=== PATIENT | female | born 1965 | race Caucasian/White ===

== ENCOUNTER 2019-09-27 12:43 | Outpatient (CLI) | payer BC, SELFPAY ==
--- NOTE | ~2019-09-27 | XR_ITS ---
EXAMINATION: XR chest 2V DATE: 09/27/2019 13:05 INDICATION: Cough. Shortness of breath. Asthma. TECHNIQUE: Frontal and lateral views of the chest were obtained. COMPARISON: None. FINDINGS: There is a 1.5 cm nodule at the junction of right mid and upper lung zones. No pleural effu amina or pneumothorax. The heart size is normal. IMPRESSION: 1. Right lung nodule suspicious for primary bronchogenic carcinoma. Noncontrast chest CT is recommend ed. Reviewed, dictated and finalized at location A. P KILLER IMPRESSION: 1. Right lung nodule suspicious for primary bronchogenic carcinoma. Noncontrast chest CT is recommended.
[2019-09-27 13:01] LABS: Base Excess ABG 2.6 mmol/L (0-2); Basophils Absolute Auto 0.03 K/mm3 (0.00-0.10); Basophils Percent Auto 0.4 % (0.0-1.0); Eosinophils Absolute Auto 0.33 K/mm3 (0.02-0.50); Eosinophils Percent Auto 4.6 % (1.0-6.0); HCO3 ABG 26.6 mmol/L (23-29); Hematocrit 44.5 % (35.0-49.0); Hemoglobin 15.2 g/dL (12.0-15.0); Immature Granulocyte Absolute 0.04 K/mm3 (0.00-0.00); Immature Granulocyte Percent A 0.6 % (0.0-0.0); Lymphocytes Absolute Auto 0.88 K/mm3 (1.10-4.50); Lymphocytes Percent Auto 12.4 % (18.0-42.0); Mean Corpuscular HGB Conc 34.2 g/dL (32.0-36.0); Mean Corpuscular Hemoglobin 33.6 pg (27.0-31.0); Mean Corpuscular Volume 98.2 fL (78.0-102.0); Mean Platelet Volume 8.4 fl (9.2-11.8); Monocytes Absolute Auto 0.79 K/mm3 (0.10-0.90); Monocytes Percent Auto 11.1 % (2.0-11.0); Neutrophils Percent Auto 70.9 % (50.0-70.0); Oxygen Content ABG 20.7 %vol (16.0-22.0); Oxygen Saturation ABG 94.3 % (95-97); Oxyhemoglobin 93.3 % (94-100); PCO2 ABG 38.9 mmHg (35-45); PO2 ABG 67.6 mmHg (80-90); Platelet Count Result 198 K/mm3 (150-420); Red Blood Count 4.53 M/mm3 (4.20-5.40); Red Cell Distribution Width 12.4 % (11.6-14.4); Total Hemoglobin 15.8 g/dL; White Blood Count 7.1 K/mm3 (4.8-10.8); pH ABG 7.45 (7.35-7.45)
[2019-09-27 13:02] LABS: Device ROOM AIR; Modified Allen's Test Pass; Site Drawn LEFT RADIAL
[2019-09-27 14:00] LABS: Alanine Aminotransferase 39 U/L (14-59); Albumin Level 3.4 g/dL (3.4-5.0); Alkaline Phosphatase 68 U/L (46-116); Anion Gap 17.1 mmol/L (7-16); Aspartate Amino Transferase 32 U/L (15-37); Bilirubin,Total 0.5 mg/dL (0.00-1.00); Blood Urea Nitrogen 18 mg/dL (7-18); Calcium 8.7 mg/dL (8.5-10.1); Carbon Dioxide 27 mmol/L (21-32); Chloride 101 mmol/L (98-108); Estimated Glomerular Filt Rate 53; Glucose 88 mg/dL (70-99); Osmolality Calculated 292 mOsm/kg (285-295); Potassium 4.1 mmol/L (3.5-5.1); Sodium 141 mmol/L (136-145); Total Protein 6.8 g/dL (6.4-8.2)
== END 2019-09-27 12:44 | disposition home or self-care (01) ==
LOC: CHSLAB 12:48
PROVIDERS: PCP Internal Medicine; Visit Provider Internal Medicine
DX: R05 Cough (principal); R06.02 Shortness of breath; J45.909 Unspecified asthma, uncomplicated
CPT/HCPCS: 36415; 36600; 71046; 80053; 82805; 85025

== ENCOUNTER 2020-03-09 08:35 | Outpatient (CLI) | payer BC, SELFPAY ==
--- NOTE | ~2020-03-09 | MM_ITS ---
EXAMINATION: MM screening maryam BI w mat HISTORY: Screening TECHNIQUE: Craniocaudal and mediolateral oblique 3-D tomosynthesis images were obtained and synthetic 2-D images were generated. CAD analysis was submitted and interpreted. COMPARISON: No prior mammogram is available for comparison at this institution. BREAST PARENCHYMAL COMPOSITION: There are scattered areas of fibroglandular density. FINDINGS: There is no evidence of suspicious mass, calcification, or architectural distortion to sugg est malignancy in either breast. There has been no suspicious interval change. IMPRESSION: 1. No mammographic evidence of malignancy. 2. Recommend routine screening mammography in one year. BI-RADS Category 1: Negative Reviewed, dictated and finalized at location A.
== END 2020-03-09 08:36 | disposition home or self-care (01) ==
LOC: CHSIMG 08:38
PROVIDERS: PCP Internal Medicine; Visit Provider Internal Medicine
DX: Z12.31 Encounter for screening mammogram for malignant neoplasm of breast (principal)
CPT/HCPCS: 77063; 77067

== ENCOUNTER 2020-05-21 11:32 | Outpatient (CLI) | payer BC, SELFPAY ==
[2020-05-22 13:07] LABS: SARS-CoV-2 RNA PCR Negative
== END 2020-05-21 11:33 | disposition home or self-care (01) ==
LOC: CHSLAB 11:39
PROVIDERS: PCP Internal Medicine; Visit Provider Internal Medicine
DX: Z20.828 Contact with and (suspected) exposure to other viral communicable diseases (principal)
CPT/HCPCS: 87635; C9803; U0003

== ENCOUNTER 2021-07-12 10:11 | Outpatient (CLI) | payer BC, SELFPAY ==
[2021-07-12 11:39] LABS: Influenza A QL RT-PCR Negative (Negative); Influenza B QL RT-PCR Negative (Negative); SARS-CoV-2 RNA PCR Negative (Negative)
== END 2021-07-12 10:12 | disposition home or self-care (01) ==
LOC: CHSLAB 10:14
PROVIDERS: PCP Internal Medicine; Visit Provider Nurse Practitioner Family
DX: Z20.822 Contact with and (suspected) exposure to COVID-19 (principal); J06.9 Acute upper respiratory infection, unspecified
CPT/HCPCS: 87502; C9803; U0003; U0005

== ENCOUNTER 2021-09-22 12:12 | Outpatient (CLI) | payer BC, SELFPAY ==
[2021-09-22 13:34] LABS: Influenza A QL RT-PCR Negative (Negative); Influenza B QL RT-PCR Negative (Negative); SARS-CoV-2 RNA PCR Negative (Negative)
== END 2021-09-22 12:13 | disposition home or self-care (01) ==
LOC: CHSLAB 12:16
PROVIDERS: PCP Internal Medicine; Visit Provider Internal Medicine
DX: J06.9 Acute upper respiratory infection, unspecified (principal); Z20.822 Contact with and (suspected) exposure to COVID-19
CPT/HCPCS: 87502; C9803; U0003; U0005

== ENCOUNTER 2022-04-01 10:47 | Outpatient (CLI) | payer OTHER, SELFPAY ==
[2022-04-01 11:35] LABS: SARS-CoV-2 RNA PCR Negative (Negative)
== END 2022-04-01 10:48 | disposition home or self-care (01) ==
LOC: CHSLAB 10:49
PROVIDERS: PCP Internal Medicine; Visit Provider Internal Medicine
DX: J06.9 Acute upper respiratory infection, unspecified (principal); Z20.822 Contact with and (suspected) exposure to COVID-19
CPT/HCPCS: C9803; U0003; U0005

== ENCOUNTER 2022-05-05 10:43 | Outpatient (CLI) | payer OTHER, SELFPAY ==
--- NOTE | ~2022-05-05 | XR_ITS ---
XR chest 2V 05/05/2022 11:11 Indication: Wheezing. Procedure: 2 view chest Comparison: 09/27/2019 Findings: Heart size normal. Stable calcified granuloma right upper thorax. No focal air space diseas e, pulmonary edema, pleural effusion or suspected pneumothorax. No acute osseous abnormality. There i s accentuated kyphosis at the thoracolumbar junction. Moderate thoracic spondylosis. Impression: 1: No acute cardiopulmonary disease. Reviewed, dictated and finalized at location A. Impression: 1: No acute cardiopulmonary disease.
--- NOTE | ~2022-05-05 | XR_ITS ---
EXAMINATION: XR_CERV2-3V_CR DATE: 05/05/2022 11:11 INDICATION: Right hand and foot numbness. Neck and back pain. TECHNIQUE: 3 views of cervical spine were obtained. COMPARISON: None. FINDINGS: There is 2 mm retrolisthesis of C3 5 on C6. Vertebral body heights are normal. There is mod erately decreased disc height at C5-C6. At C5-C6, there is severe right and moderate left uncovertebr al joint osteoarthritis. There is multilevel mild facet joint osteoarthritis. There is mild central c anal stenosis at C5-C6. No prevertebral soft tissue swelling. IMPRESSION: 1. Moderate cervical spondylosis. Reviewed, dictated and finalized at location A.
--- NOTE | ~2022-05-05 | XR_ITS ---
EXAMINATION: XR lumbar spine 2-3V DATE: 05/05/2022 11:11 INDICATION: Back pain. TECHNIQUE: 3 views of lumbar spine were obtained. COMPARISON: None. FINDINGS: There is 3 degrees levocurvature of lumbar spine. There is 3 mm retrolisthesis of L2 on L3. Vertebral body heights are normal. There is mildly decreased disc height at L2-L3 and moderately dec reased disc height at L5-S1. There is multilevel facet joint osteoarthritis, severe bilaterally at L4 -L5 and L5-S1. IMPRESSION: 1. Moderate lumbar spondylosis. Reviewed, dictated and finalized at location A.
== END 2022-05-05 10:44 | disposition home or self-care (01) ==
LOC: CHSIMG 10:46
PROVIDERS: PCP Internal Medicine; Visit Provider Internal Medicine
DX: R20.0 Anesthesia of skin (principal); H53.8 Other visual disturbances; M54.2 Cervicalgia; M54.9 Dorsalgia, unspecified
CPT/HCPCS: 71046; 72040; 72100

== ENCOUNTER 2022-11-02 10:22 | Outpatient (RCR) | payer OTHER, SELFPAY ==
--- NOTE | 2022-11-02 12:01 | PTOPEVAL1 ---
Assessment and note entered by Valeria Bryan DPT Evaluation Information Assessment Status Evaluation Diagnosis weakness, decreased balance Onset 05/04/22 Subjective Information Ginger reports that in April she felt like she had tunnel vision but reports that this progressed to R LE weakness and numbness that eventually went to L LE as well. She also reports weakness in the R hand. 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 She reports she was wheelchair bound following hospitalization and was sent to [place] for rehab . She has been recieving PT in [place] but they were no longer taking her insurance. She is walking with a platform walker but would like to transition to [facility]. 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 Reported Pain Level Pain Score 0: Self Report Assessment PT Clinical Summary Patient is a 56 year old female who presents to PT with EGPA. She demonstrates impaired balance, decreased B ankle strength and impaired gait limiting her ability to ambulate, complete house hold tasks, and participate in community activity. She would benefit from skilled PT to address impairments and reach her highest level of function Plan of Care PT Services Indicated Yes Treatment Frequency and 2x weekly for 8 visits Duration These treatments will address the objective and functional deficits as defined above. The patient will be advanced safely and appropriately in order for the patient to progress towards his/her prior level of function. Additional exercises will be introduced and as well as a comprehensive home exercise program upon discharge, if needed, ?to ensure carryover of functional gains achieved in the clinic. This treatment plan has been reviewed and agreement upon by the patient.
--- NOTE | 2022-11-15 19:57 | BUOTOPEVAL ---
Assessment and note entered by Tri Jacobs, OT Evaluation Information Assessment Status Evaluation Diagnosis generalized weakness Onset 05/04/22 Subjective Information Patient reports that she was diagnosed with EGPA with symptoms starting in April 2022. She received acute rehab in June 2022 and has not had any OT since then. Patient reports that she has significant weakness in bilateral hands however it is worse in her R hand. Her strong fingers are the L thumb, index and middle fingers although those are weak as well. She states that weakness has been about the same since approximately June 2022. Altered sensation, tingling and numbness, is noted throughout bilateral hands and LE's. Patient requires assist to get in the shower but is then able to bathe herself. She is using a tub seat. Patient has a difficult time lifting things which impacts her ability to cook and clean however she continues to try. Patient struggles with writing and is using built up utensils for feeding. Patient is currently getting herself dressed and performs grooming. 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 Reported Pain Level Pain Score 0: Self Report Pain Score 0: Self Report Pain Score 0: Self Report Pain Score 0: Self Report Assessment OT Clinical Summary Patient is a 56 year old female who presents with generalized weakness and a diagnosis of EGPA with polyneuritis. 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 She currently requires assist for bathing, most IADLs, and fine motor skills. Patient exhibits significant deficits in sensation throughout bilateral hands, decreased strength in bilateral hands, and decreased ROM in the R hand that are directly impacting her independence and function. Skilled OT services are recommended in order to faciliate these skills as well as provide education on safety with sensation deficits and provide appropriate accomodations/modifications. Plan of Care Interventions Therapeutic Exercise,Manual Therapy,Neuro Re-
--- NOTE | 2022-12-05 10:07 | PTOPREEVAL ---
Assessment and note entered by Valeria Bryan DPT Evaluation Information Assessment Status Re-evaluation Diagnosis weakness, decreased balance Onset 05/04/22 Subjective Information Patient reports that L foot continues to feel weak and she feels like it will roll'. She reports she is using the cane around house and short distances but is using the walker for longer distances. She reports she has noticed for UE strength and has improved cane use. She reports yesterday she noticed that the R LE started to swell with her foot having some pain. She reports she was very busy yesterday. Reported Pain Level Pain Score 5: Self Report Assessment PT Clinical Summary Patient has attended 8 visits of skilled PT from -12/05/22. She has demonstrated improved strength and balance but still presents as a fall risk. She is now ambulating with a cane for short distances and a walker for prolonged distances. She would benefit from continued skilled PT to address remaining impairments and return to her highest level of function. Plan of Care Interventions Gait Training,Hot Pack/Cold Pack,Manual Therapy, Neuro Re-education,Patient/Caregiver Educati, Therapeutic Activities,Therapeutic Exercise PT Services Indicated Yes Treatment Frequency and continue 2x weekly for 8 visits Duration These treatments will address the objective and functional deficits as defined above. The patient will be advanced safely and appropriately in order for the patient to progress towards his/her prior level of function. Additional exercises will be introduced and as well as a comprehensive home exercise program upon discharge, if needed, ?to ensure carryover of functional gains achieved in the clinic. This treatment plan has been reviewed and agreement upon by the patient.
--- NOTE | 2023-01-04 10:19 | BUOTOPEVAL ---
Assessment and note entered by Blanca Oliveira, OT Evaluation Information Assessment Status Progress Diagnosis generalized weakness Onset 05/04/22 Subjective Information Patient reports that she was diagnosed with EGPA with symptoms starting in April 2022. She received acute rehab in June 2022 and has not had any OT since then. Patient reports that she has significant weakness in bilateral hands however it is worse in her R hand. Her strong fingers are the L thumb, index and middle fingers although those are weak as well. She states that weakness has been about the same since approximately June 2022. Altered sensation, tingling and numbness, is noted throughout bilateral hands and LE's. Patient requires assist to get in the shower but is then able to bathe herself. She is using a tub seat. Patient has a difficult time lifting things which impacts her ability to cook and clean however she continues to try. Patient struggles with writing and is using built up utensils for feeding. Patient is currently getting herself dressed and performs grooming. Patient's primary goal for OT is to improve her grasp/runner on in the R hand. Reported Pain Level Pain Score 0: Self Report Pain Score 0: Self Report Pain Score 0: Self Report Pain Score 0: Self Report Pain Score 0: Self Report Pain Score 0: Self Report Pain Score 0: Self Report Pain Score 0: Self Report Pain Score 0: Self Report Pain Score 0: Self Report Pain Score 0: Self Report Pain Score 5: Self Report Pain Score 0: Self Report Pain Score 0: Self Report Pain Score 0: Self Report Pain Score 0: Self Report Pain Score 0: Self Report Pain Score 0: Self Report Pain Score 0: Self Report Pain Score 0: Self Report Pain Score 0: Self Report
--- NOTE | 2023-01-17 13:00 | PTOPREEVAL ---
Assessment and note entered by Valeria Bryan DPT Evaluation Information Assessment Status Re-evaluation Diagnosis weakness, decreased balance Onset 05/04/22 Subjective Information Patient reports that since blood clot she is back to where she was prior. Patient reports difficuty with walking for long periods of time. She would like to continue to work on stamina and prolong activity Reported Pain Level Pain Score 1: Self Report Assessment PT Clinical Summary Patient has been seen for 8 visits since last re- assesssment. Patient continues to make good progress towards goals with improved strength, balance and ambulation. She continues to demonstrate decreaed strength at B ankles and is at risk for fals indicated by functional testing. She will benefit from continued skilled PT to decrease fall risk within in the home and improve independence. Plan of Care Interventions Gait Training,Hot Pack/Cold Pack,Manual Therapy, Neuro Re-education,Patient/Caregiver Educati, Therapeutic Activities,Therapeutic Exercise PT Services Indicated Yes Treatment Frequency and 1x weekly for 4 visits Duration These treatments will address the objective and functional deficits as defined above. The patient will be advanced safely and appropriately in order for the patient to progress towards his/her prior level of function. Additional exercises will be introduced and as well as a comprehensive home exercise program upon discharge, if needed, ?to ensure carryover of functional gains achieved in the clinic. This treatment plan has been reviewed and agreement upon by the patient.
--- NOTE | 2023-02-14 10:46 | PTOPDC ---
Assessment and note entered by Valeria Bryan DPT Evaluation Information Assessment Status Re-evaluation Diagnosis weakness, decreased balance Onset 05/04/22 Subjective Information Patient reports that she is able to stand and walk for longer periods of time. She also reports she is able to walk on her hardwood with no AD. Reported Pain Level Pain Score 1: Self Report Assessment PT Clinical Summary Patient was seen for 20 visits of skilled PT with good improvement towards all goals. Patient has improved 6 min walk test to 675' with STC, 5xSTS to 12 seconds and improved Tinetti balance scoring indicating lower fal risk. Patient is independent with HEP and is appropriate for DC at this time. Plan of Care PT Services Indicated No
--- NOTE | 2023-07-27 13:39 | PCOTNOTE ---
The patient discharged due to >30 days since last treatment.
== END 2023-01-11 14:16 | disposition home or self-care (01) ==
LOC: CHSPT 10:22
PROVIDERS: PCP Internal Medicine; Visit Provider Internal Medicine
DX: M30.1 Polyarteritis with lung involvement [Churg-Strauss] (principal); G62.9 Polyneuropathy, unspecified; R53.1 Weakness
CPT/HCPCS: 97110; 97112; 97116; 97140; 97150; 97161; 97165; 97530; 97750

== ENCOUNTER 2022-12-07 10:10 | Emergency (ER) | payer OTHER, SELFPAY ==
--- NOTE | ~2022-12-07 | US_ITS ---
EXAMINATION: US venous doppler LE DATE: 12/07/2022 11:46 INDICATION: Right lower limb swelling TECHNIQUE: Grayscale ultrasound images without and with compression and Doppler ultrasound images of the right lower extremity veins were obtained. COMPARISON: None. FINDINGS: Noncompressible deep venous thrombosis seen in the visualized portions of the right common femoral ve in, profunda (deep) femoral vein, femoral vein, popliteal vein and greater saphenous vein outflow. Th is appears largely occlusive with small tract of residual blood flow evident on color Doppler at the right gastrocnemius vein extending into the right common femoral vein. The visualized portions of the right gastrocnemius vein and posterior tibial vein are patent and compressible. The right peroneal v eins are now clearly visualized. IMPRESSION: 1. Extensive deep venous thrombosis extending from the right common femoral vein through at least th e right popliteal vein which appears largely occlusive. Dr. Miguel discussed these findings with Dr. Gamboa at 11:51 AM. Reviewed, dictated and finalized at location A. IMPRESSION: 1. Extensive deep venous thrombosis extending from the right common femoral ve in through at least the right popliteal vein which appears largely occlusive. Dr. Miguel discussed these findings with Dr. Gamboa at 11:51 AM.
[2022-12-07 10:10] VITALS: BP 139/83; PULSE 96; RESP 18; TEMP 36.6; O2SAT 93
--- NOTE | 2022-12-07 10:23 | ED.LOWEXIN ---
HPI - Extremity Injury (Lower) General Chief Complaint: Extremity Injury, Lower Stated Complaint: Right Leg Swelling Time Seen by Provider: 12/07/22 10:17 Source: patient Limitations: no limitations History of Present Illness HPI Narrative: 56-year-old female with a history of anxiety/depression,diabetes mellitus, [place] with asthma, mononeuritis multiplex, left optic neuritis with exacerbation in June of 2022 with foot drop, loss of ambulation which was treated with steroids and rituximab. subsequently the patient is on prednisone 80 mg daily. The patient presents to the ER with -- right leg swelling for the past 3 days. No shortness of breath. The patient has right footdrop and uses the right foot brace. Onset (ago): day(s) ( Started 3 days ago.) Relieving factors: nothing Exacerbating factors: nothing Other symptoms: none Related Data Home Medications Medication Instructions Recorded Confirmed Admelog U-100 Insulin lispro See Rx Instructions .Route .COMPLEX 07/14/22 12/07/22 Adults Multivitamin 1 mg PO DAILY 07/14/22 12/07/22 albuterol sulfate 90 mcg/actuation 2 puff inhalation Q4-6H PRN 07/14/22 12/07/22 aerosol inhaler Shortness Of Breath Or Wheezing cetirizine 10 mg tablet 10 mg PO DAILY 07/14/22 12/07/22 fluticasone furoate-vilanterol 1 puff inhalation DAILY 07/14/22 12/07/22 fluticasone propionate 2 spray inhalation DAILY 07/14/22 12/07/22 gabapentin 600 mg tablet 600 mg PO TID 07/14/22 12/07/22 pantoprazole 40 mg tablet,delayed 40 mg PO DAILY 07/14/22 12/07/22 release (Protonix) fluticasone 500 mcg-salmeterol 50 1 inh inhalation BID 12/07/22 12/07/22 mcg/dose blistr powdr for inhalation (Advair Diskus) fluticasone furoate 200 1 inh inhalation DAILY 12/07/22 12/07/22 mcg-vilanterol 25 mcg/dose inhalation powder (Breo Ellipta) sulfamethoxazole 400 1 tablet PO DAILY 12/07/22 12/07/22 mg-trimethoprim 80 mg tablet zolpidem 10 mg tablet 5 mg PO HS 12/07/22 12/07/22 Allergies Allergy/AdvReac Type Severity Reaction Status Date / Time No Known Allergies Allergy Verified 12/07/22 10:20 Review of Systems Review of Systems: All systems reviewed & are unremarkable except as noted in HPI and below Constitutional: Constitutional: Reports as per HPI and Reports no additional constitutional complaints Eyes: Eyes: Reports as per HPI and Reports no additional eye complaints ENT: Reports system reviewed and no additional complaints, except as documented and Reports as per HPI Cardiovascular: Cardiovascular: Reports as per HPI and Reports no additional cardiovascular complaints Respiratory: Respiratory: Reports as per HPI and Reports no additional respiratory complaints Gastrointestinal: Gastrointestinal: Reports as per HPI and Reports no additional gastrointestinal complaints Genitourinary: Genitourinary: Reports no additional female genitourinary complaints and Reports as per HPI Musculoskeletal: Musculoskeletal: Reports no additional musculoskeletal complaints and Reports as per HPI Integumentary/Breasts: Skin/Breast: Reports system reviewed and no additional complaints, except as docu and Reports as per HPI Neurologic: Comments: Right foot drop decreased sensation of distal extremities Psychiatric: Psychiatric: Reports anxiety and Reports depression Endocrine: Endocrine: Reports no additional endocrine complaints and Reports as per HPI Hematologic/Lymphatic: Hematologic/Lymphatic: Reports no additional hematologic/lymphatic complaints and Reports as per HPI Allergic/Immunologic: Allergic/Immunologic: Reports no additional allergic/immunologic complaints and Reports as per HPI [facility] Social History Social History Smoking status: Never smoker Exam Const: General: no acute distress Orientation/consciousness: patient oriented x3 Limitations: no limitations HENMT: Head: normal to inspection Ears: external ea
[2022-12-07 10:26] VITALS: BP 139/83; PULSE 96; RESP 18; TEMP 36.6; O2SAT 93
[2022-12-07 10:59] LABS: Basophils Absolute Auto 0.07 K/mm3 (0.00-0.10); Basophils Percent Auto 0.5 % (0.0-1.0); Eosinophils Absolute Auto 0.01 K/mm3 (0.02-0.50); Eosinophils Percent Auto 0.1 % (1.0-6.0); Hematocrit 44.4 % (35.0-49.0); Hemoglobin 14.6 g/dL (12.0-15.0); Immature Granulocyte Absolute 0.49 K/mm3 (0.00-0.00); Immature Granulocyte Percent A 3.3 % (0.0-0.0); Lymphocytes Absolute Auto 0.97 K/mm3 (1.10-4.50); Lymphocytes Percent Auto 6.5 % (18.0-42.0); Mean Corpuscular HGB Conc 32.9 g/dL (32.0-36.0); Mean Corpuscular Hemoglobin 34.5 pg (27.0-31.0); Mean Platelet Volume 8.8 fl (9.2-11.8); Monocytes Absolute Auto 0.41 K/mm3 (0.10-0.90); Monocytes Percent Auto 2.8 % (2.0-11.0); Neutrophils Absolute Auto 12.9 K/mm3 (1.7-7.2); Neutrophils Percent Auto 86.8 % (50.0-70.0); Nucleated Red Blood Cells Absolute Auto 0.03 K/mm3 (0.00-0.00); Nucleated Red Blood Cells Perc 0.2 % (0-0.0); Platelet Count Result 241 K/mm3 (150-420); Red Blood Count 4.23 M/mm3 (4.20-5.40); Red Cell Distribution Width 14.5 % (11.6-14.4); White Blood Count 14.9 K/mm3 (4.8-10.8)
[2022-12-07 11:08] LABS: Anion Gap 13 mmol/L (8-16); Blood Urea Nitrogen 18 mg/dL (7-18); Calcium 9.5 mg/dL (8.5-10.1); Carbon Dioxide 27 mmol/L (21-32); Chloride 103 mmol/L (98-108); Estimated CRCL calculation 42 ml/min; Estimated Glomerular Filt Rate 40; Glucose 154 mg/dL (70-99); Osmolality Calculated 300 mOsm/kg (285-295); Sodium 143 mmol/L (136-145)
--- NOTE | 2022-12-07 11:15 | PC.NURSE ---
Cleaned laceration on left leg with wound cleanser and dressed with a band-aid
[2022-12-07 11:21] LABS: D Dimer 5.15 mg/L (0.19-0.50)
--- NOTE | 2022-12-07 11:29 | PC.NURSE ---
PT TO ULTRASOUND AT THIS TIME.
[2022-12-07 12:00] VITALS: BP 140/91; PULSE 99; RESP 16; O2SAT 94
[2022-12-07 17:01] LABS: Alanine Aminotransferase 40 U/L (14-59); Albumin Level 3.7 g/dL (3.4-5.0); Alkaline Phosphatase 74 U/L (46-116); Aspartate Amino Transferase 18 U/L (15-37); Bilirubin Direct 0.1 mg/dL (0-0.2); Bilirubin,Total 0.3 mg/dL (0.00-1.00); Total Protein 6.8 g/dL (6.4-8.2)
== END 2022-12-07 12:25 | disposition home or self-care (01) ==
PROVIDERS: Emergency Provider Internal Medicine Critical Care Medicine; PCP Internal Medicine
DX: I82.411 Acute embolism and thrombosis of right femoral vein (principal); N28.9 Disorder of kidney and ureter, unspecified; E11.9 Type 2 diabetes mellitus without complications
CPT/HCPCS: 36415; 80048; 80076; 85025; 85380; 93971; 99284

== ENCOUNTER 2023-01-13 08:11 | Outpatient (CLI) | payer OTHER, SELFPAY ==
[2023-01-13 09:02] LABS: Hemoglobin A1C 5.4 % (<5.7)
[2023-01-13 10:09] LABS: Alanine Aminotransferase 38 U/L (14-59); Albumin Level 3.8 g/dL (3.4-5.0); Alkaline Phosphatase 63 U/L (46-116); Anion Gap 10 mmol/L (8-16); Aspartate Amino Transferase 15 U/L (15-37); Bilirubin,Total 0.3 mg/dL (0.00-1.00); Blood Urea Nitrogen 21 mg/dL (7-18); Calcium 9.1 mg/dL (8.5-10.1); Carbon Dioxide 27 mmol/L (21-32); Chloride 107 mmol/L (98-108); Cholesterol 286 mg/dL (0-200); Estimated Glomerular Filt Rate 40; Glucose 77 mg/dL (70-99); HDL Direct 70 mg/dL (40-60); LDL Cholesterol Calculated 169 mg/dL (<130); Osmolality Calculated 300 mOsm/kg (285-295); Potassium 3.9 mmol/L (3.5-5.1); Sodium 144 mmol/L (136-145); Total Protein 6.3 g/dL (6.4-8.2); Triglycerides 236 mg/dL (0-150)
== END 2023-01-13 08:12 | disposition home or self-care (01) ==
LOC: CHSLAB 08:16
PROVIDERS: PCP Internal Medicine
DX: R73.01 Impaired fasting glucose (principal); E78.5 Hyperlipidemia, unspecified
CPT/HCPCS: 36415; 80053; 80061; 83036

== ENCOUNTER 2023-03-08 08:42 | Outpatient (CLI) | payer OTHER, SELFPAY ==
--- NOTE | ~2023-03-08 | US_ITS ---
EXAMINATION: US venous doppler LE RT DATE: 03/08/2023 09:19 INDICATION: Follow-up of recent acute deep venous thrombosis TECHNIQUE: Grayscale ultrasound images without and with compression and Doppler ultrasound images of the right lower extremity veins were obtained. COMPARISON: 12/07/2022 FINDINGS: There is a small amount of residual nonocclusive peripheral linear thrombus in the right common femor al vein and at the distal right femoral vein . Prior thrombus as resolved in the visualized portions of right profunda (deep) femoral vein, proximal to mid femoral vein, and popliteal vein. The right pe roneal trunk, posterior tibial veins, peroneal veins, gastrocnemius vein and greater saphenous vein o utflow remain patent. Incidentally noted is approximately 2.2 cm reflux of the right popliteal vein. IMPRESSION: 1. Significant improvement in prior deep venous thrombosis with residual small amount of nonocclusiv e thrombus in the right common femoral and distal right femoral veins. Reviewed, dictated and finalized at location B. IMPRESSION: 1. Significant improvement in prior deep venous thrombosis with residual small amount of nonocclusive thrombus in the right common femoral and distal right f emoral veins.
== END 2023-03-08 08:43 | disposition home or self-care (01) ==
LOC: CHSIMG 08:44
PROVIDERS: PCP Internal Medicine; Visit Provider Internal Medicine Hematology & Oncology
DX: I82.411 Acute embolism and thrombosis of right femoral vein (principal)
CPT/HCPCS: 93971

== ENCOUNTER 2023-03-24 08:05 | Outpatient (CLI) | payer OTHER, SELFPAY ==
--- NOTE | ~2023-03-24 | MM_ITS ---
EXAMINATION: MM screening maryam BI w mat HISTORY: Screening mammogram TECHNIQUE: Craniocaudal and mediolateral oblique 3-D tomosynthesis images were obtained and synthetic 2-D images were generated. CAD analysis was submitted and interpreted. COMPARISON: 03/09/2020 BREAST PARENCHYMAL COMPOSITION: There are scattered areas of fibroglandular density. FINDINGS: No suspicious mass, calcification, or architectural distortion are identified in either twyla ast to suggest malignancy. There has been no suspicious interval change. IMPRESSION: 1. No mammographic evidence of malignancy. 2. Recommend routine screening mammography in one year. BI-RADS Category 1: Negative Reviewed, dictated and finalized at location A.
== END 2023-03-24 08:06 | disposition home or self-care (01) ==
LOC: CHSIMG 08:07
PROVIDERS: PCP Internal Medicine; Visit Provider Internal Medicine
DX: Z12.31 Encounter for screening mammogram for malignant neoplasm of breast (principal)
CPT/HCPCS: 77063; 77067

== ENCOUNTER 2023-05-09 13:41 | Outpatient (CLI) | payer OTHER, SELFPAY ==
--- NOTE | ~2023-05-09 | US_ITS ---
EXAMINATION:US venous doppler LE LT INDICATION:Acute DVT of the right lower extremity TECHNIQUE: Multiple grayscale, color flow and Doppler images of the right lower extremity deep venous systems were obtained and reviewed. COMPARISON:Left leg redness and swelling FINDINGS: The common femoral, superficial femoral and popliteal veins demonstrate normal respiratory variation, augmentation and compressibility. Color flow is also seen within the posterior tibial, pe roneal, greater saphenous and profunda veins. IMPRESSION: 1: No lower extremity deep venous thrombosis. Reviewed, dictated and finalized at location L.
== END 2023-05-09 13:42 | disposition home or self-care (01) ==
LOC: CHSIMG 13:43
PROVIDERS: PCP Internal Medicine; Visit Provider Internal Medicine Hematology & Oncology
DX: M79.662 Pain in left lower leg (principal); I82.4Y1 Acute embolism and thrombosis of unspecified deep veins of right proximal lower extremity
CPT/HCPCS: 93971

== ENCOUNTER 2023-06-14 08:45 | Outpatient (CLI) | payer OTHER, SELFPAY ==
--- NOTE | ~2023-06-14 | US_ITS ---
EXAMINATION: US venous doppler LE RT DATE: 06/14/2023 09:12 INDICATION: Acute deep vein thrombosis. TECHNIQUE: Grayscale ultrasound images without and with compression and Doppler ultrasound images of the right lower extremity veins were obtained. COMPARISON: Ultrasound 03/08/2023, 12/07/22 FINDINGS: The visualized portions of right profunda (deep) femoral vein, peroneal veins, posterior tibial veins , and greater saphenous vein outflow are patent. There is thrombus in right common femoral vein, femo ral vein, and popliteal vein. IMPRESSION: 1. Deep vein thrombosis involving the right common femoral vein, femoral vein, and popliteal vein in a distribution similar to that seen on 12/07/22 and 03/08/23. Reviewed, dictated and finalized at location A. RY TECHNICIAN IMPRESSION: 1. Deep vein thrombosis involving the right common femoral vein, femoral vein, and popliteal vein in a distribution similar to that seen on 12/07/22 and 3.
--- NOTE | ~2023-06-14 | DEXA_ITS ---
Bone Density Report Name: DANIELA BOTELLO Age: 57 Sex: Female Ethnicity: White Date of : 1965 Indication: postmenopausal; screening for osteoporosis; height loss; history of glucocorticoids; prior fracture; asthma or emphysema; Referring Provider: HUSSEIN AVENDAÑO Study: Bone densitometry was performed. Exam Date: June 14, 2023 Accession number: [id number] Bone Density: Region BMD T-score Z-score Classification AP Spine(L2, L3, L4) 0.912 -1.5 -0.2 Osteopenia Femoral Neck (Left) 0.744 -0.9 0.3 Normal Total Hip (Left) 0.945 0.0 0.9 Normal Femoral Neck (Right) 0.691 -1.4 -0.2 Osteopenia Total Hip (Right) 0.900 -0.3 0.5 Normal Femoral Neck Mean 0.718 -1.2 0.0 Osteopenia Total Hip Mean 0.923 -0.2 0.7 Normal World Health Organization criteria for BMD impression classify patients as: Normal (T-score at or above -1.0), Osteopenia (T-score between -1.0 and -2.5), or Osteoporosis (T-score at or below -2.5). 10-year Fracture Risk: FRAX not reported because: Prior hip or vertebral fracture Clinical Information Provided by Patient: Have had a previous hip or vertebral fracture Has had a low trauma fracture Has taken Glucocorticoids Has used the following medications: Vitamin D, Calcium Has the following medical conditions: Asthma or Emphysema, EGPA Patient maximum height was 63.5 Menopause Age: 41 No regular weight bearing exercise Does not regularly consume dairy products Drinks caffeinated beverages Onset of menses at age 10 Number of children 0 Impression: The patient has low bone mass, based on the Total Spine T-score. The patient has risk factors, including: previous fracture, history of glucocorticoid therapy. Discussion: INCREASED RISK OF FRACTURE DUE TO HISTORY OF FRACTURE. The patient's previous fracture puts the patient at high risk of a future fracture. In untreated patients, the risk of osteoporotic fracture increases approximately two-fold for each 1.0 SD decrease in T-score. Low bone density is not the only risk factor for fracture; also consider factors such as patient's age, frailty or poor health, risk of falling, risk of injury, previous osteoporotic fracture, family history of osteoporosis, cigarette smoking, low body weight, etc. Not everyone with a low trauma fracture has osteoporosis; osteomalacia and other metabolic bone disorders should also be considered. Patients who have osteoporosis should be evaluated for specific diseases and conditions (secondary causes) that may cause or contribute to bone loss and fracture risk. National Osteoporosis Foundation (NOF) recommends pharmacologic intervention for patients with a prior hip or vertebral fracture regardless of BMD T-score. The patient should follow a healthful lifestyle (good nutrition with adequate calcium
== END 2023-06-14 08:46 | disposition home or self-care (01) ==
LOC: CHSIMG 08:46
PROVIDERS: PCP Internal Medicine; Visit Provider Internal Medicine Hematology & Oncology
DX: I82.411 Acute embolism and thrombosis of right femoral vein (principal); I82.431 Acute embolism and thrombosis of right popliteal vein; Z78.0 Asymptomatic menopausal state; M85.89 Other specified disorders of bone density and structure, multiple sites
CPT/HCPCS: 77080; 93971

== ENCOUNTER 2023-08-28 15:06 | Outpatient (CLI) | payer OTHER, SELFPAY ==
[2023-08-28 16:03] LABS: Alanine Aminotransferase 31 U/L (14-59); Albumin Level 3.9 g/dL (3.4-5.0); Alkaline Phosphatase 58 U/L (46-116); Anion Gap 11 mmol/L (8-16); Aspartate Amino Transferase 16 U/L (15-37); Bilirubin,Total 0.4 mg/dL (0.00-1.00); Blood Urea Nitrogen 15 mg/dL (7-18); Calcium 9.4 mg/dL (8.5-10.1); Carbon Dioxide 30 mmol/L (21-32); Chloride 105 mmol/L (98-108); Estimated Glomerular Filt Rate 43; Glucose 90 mg/dL (70-99); Osmolality Calculated 302 mOsm/kg (285-295); Potassium 4.5 mmol/L (3.5-5.1); Sodium 146 mmol/L (136-145); Total Protein 6.5 g/dL (6.4-8.2)
[2023-09-02 20:49] LABS: Immunoglobulin G 386 mg/dL (600-1640)
== END 2023-08-28 15:07 | disposition home or self-care (01) ==
LOC: CHSLAB 15:08
PROVIDERS: PCP Internal Medicine
DX: M30.1 Polyarteritis with lung involvement [Churg-Strauss] (principal); D72.18 Eosinophilia in diseases classified elsewhere
CPT/HCPCS: 36415; 80053; 82784

== ENCOUNTER 2023-09-28 08:18 | Outpatient (CLI) | payer OTHER, SELFPAY ==
--- NOTE | ~2023-09-28 | US_ITS ---
EXAMINATION: US venous doppler LE RT DATE: 09/28/2023 08:45 INDICATION: Acute deep venous thrombosis TECHNIQUE: Grayscale ultrasound images without and with compression and Doppler ultrasound images of the right lower extremity veins were obtained. COMPARISON: 06/14/2023, 03/18/2023 and 12/07/2022. FINDINGS: Persistent nonocclusive thrombus in the partially compressible distal right common femoral vein, prox imal right femoral vein and in the popliteal vein. The visualized portions of right profunda (deep) f emoral vein, mid to distal femoral vein, posterior tibial veins, peroneal veins, gastrocnemius vein and greater saphenous vein outflow are patent. Venous reflux of 3 seconds duration in the right popli teal vein. IMPRESSION: 1. No significant interval change in likely chronic deep venous thrombosis involving the right commo n femoral vein, femoral vein and popliteal vein which is been significant multiple studies dating steff k to 12/07/2022 Reviewed, dictated and finalized at location L. DATA ARCHITECT IMPRESSION: 1. No significant interval change in likely chronic deep venous thrombosis inv olving the right common femoral vein, femoral vein and popliteal vein which is been significant multiple studies dating back to 12/07/2022
== END 2023-09-28 08:19 | disposition home or self-care (01) ==
LOC: CHSIMG 08:20
PROVIDERS: PCP Internal Medicine; Visit Provider Internal Medicine Hematology & Oncology
DX: I82.4Y1 Acute embolism and thrombosis of unspecified deep veins of right proximal lower extremity (principal)
CPT/HCPCS: 93971

== ENCOUNTER 2023-10-09 08:06 | Emergency (ER) | payer OTHER, SELFPAY ==
[2023-10-09] VITALS (17 sets, daily range): BP systolic 122–164; BP diastolic 68–92; PULSE 66–88; RESP 18–20; TEMP 36.2–36.9; O2SAT 93–98
--- NOTE | 2023-10-09 08:27 | ED.ABDPAIN ---
HPI - Abdominal Pain General Chief Complaint: Abdominal Pain Stated Complaint: weakness; post-COVID Time Seen by Provider: 10/09/23 08:22 Source: patient Mode of arrival: ambulatory History of Present Illness HPI narrative: Patient is a 49-year-old female with significant past medical history presents today for abdominal pain. Patient states that she recently got over COVID and had that a few weeks ago. She states that she has felt fatigued and had abdominal pain, nausea ever since then. He has not been able now to liquids very well. She denies any vomiting. She says she has has diarrhea. MD elicited complaint: abdominal pain Pertinent past history: other (COVID) Onset (ago): week(s) Pain Consistency: intermittent Location: diffuse Severity: mild Quality: cramping Radiation: none Associated symptoms: nausea and diarrhea Related Data Home Medications Medication Instructions Recorded Confirmed Adults Multivitamin 1 mg PO DAILY 07/14/22 10/09/23 albuterol sulfate 90 mcg/actuation 2 puff inhalation Q4-6H PRN 07/14/22 10/09/23 aerosol inhaler Shortness Of Breath Or Wheezing cetirizine 10 mg tablet 10 mg PO DAILY 07/14/22 10/09/23 fluticasone propionate 2 spray inhalation DAILY 07/14/22 10/09/23 gabapentin 600 mg tablet 300 mg PO BID 07/14/22 10/09/23 sulfamethoxazole 400 1 tablet PO DAILY 12/07/22 10/09/23 mg-trimethoprim 80 mg tablet zolpidem 10 mg tablet 5 mg PO HS 12/07/22 10/09/23 ascorbic acid (vitamin C) 500 mg 500 mg PO DAILY 10/09/23 10/09/23 tablet cholecalciferol (vitamin D3) 25 25 mcg PO DAILY 10/09/23 10/09/23 mcg (1,000 unit) chewable tablet (Vitamin D3) fluticasone fur. 200 mcg-umeclid 1 inh inhalation DAILY 10/09/23 10/09/23 62.5 mcg-vilant 25 mcg inhalat.powder (Trelegy Ellipta) prednisone 5 mg tablet 3 mg PO DAILY 10/09/23 10/09/23 rosuvastatin 5 mg tablet 5 mg PO DAILY 10/09/23 10/09/23 Allergies Allergy/AdvReac Type Severity Reaction Status Date / Time No Known Allergies Allergy Verified 03/11/24 09:05 Review of Systems Review of Systems: All systems reviewed & are unremarkable except as noted in HPI and below Constitutional: Constitutional: Reports as per HPI and Reports no additional constitutional complaints Eyes: Eyes: Reports no additional eye complaints ENT: Reports system reviewed and no additional complaints, except as documented Cardiovascular: Cardiovascular: Reports no additional cardiovascular complaints Respiratory: Respiratory: Reports no additional respiratory complaints Gastrointestinal: Gastrointestinal: Reports as per HPI, Reports abdominal pain, Reports diarrhea and Reports nausea Genitourinary: Genitourinary: Reports no additional female genitourinary complaints Musculoskeletal: Musculoskeletal: Reports no additional musculoskeletal complaints Integumentary/Breasts: Skin/Breast: Reports system reviewed and no additional complaints, except as docu Neurologic: Reports system reviewed and no additional complaints, except as documented Psychiatric: Psychiatric: Reports no additional psychiatric complaints Endocrine: Endocrine: Reports no additional endocrine complaints Hematologic/Lymphatic: Hematologic/Lymphatic: Reports no additional hematologic/lymphatic complaints Allergic/Immunologic: Allergic/Immunologic: Reports no additional allergic/immunologic complaints PMFSH Social History Social History Smoking status: Never smoker Exam Const: General: healthy appearing Nutritional Appearance: well nourished Orientation/consciousness: patient oriented x3 HENMT: Head: normal to inspection Ears: external ears normal Face/Nose/Sinus: Normal external nose present Eyes: Conjunctivae: conjunctivae normal Pupils: Equal, round and reactive pupils present EOM: EOMs intact bilaterally Neck: Neck: normal visual inspection Chest: Chest palpation & inspection: normal inspection of the chest
[2023-10-09 08:46] LABS: Basophils Absolute Auto 0.06 K/mm3 (0.00-0.10); Basophils Percent Auto 0.8 % (0.0-1.0); Eosinophils Absolute Auto 0.33 K/mm3 (0.02-0.50); Eosinophils Percent Auto 4.2 % (1.0-6.0); Hematocrit 41.5 % (35.0-49.0); Hemoglobin 13.8 g/dL (12.0-15.0); Immature Granulocyte Absolute 0.04 K/mm3 (0.00-0.00); Immature Granulocyte Percent A 0.5 % (0.0-0.0); Lymphocytes Absolute Auto 2.44 K/mm3 (1.10-4.50); Mean Corpuscular HGB Conc 33.3 g/dL (32.0-36.0); Mean Corpuscular Hemoglobin 32.2 pg (27.0-31.0); Mean Corpuscular Volume 96.7 fL (78.0-102.0); Mean Platelet Volume 8.6 fl (9.2-11.8); Monocytes Absolute Auto 0.62 K/mm3 (0.10-0.90); Monocytes Percent Auto 7.9 % (2.0-11.0); Neutrophils Absolute Auto 4.4 K/mm3 (1.7-7.2); Neutrophils Percent Auto 55.6 % (50.0-70.0); Platelet Count Result 329 K/mm3 (150-420); Red Blood Count 4.29 M/mm3 (4.20-5.40); Red Cell Distribution Width 13.2 % (11.6-14.4); White Blood Count 7.9 K/mm3 (4.8-10.8)
[2023-10-09] MEDS: SODIUM CHLORIDE 0.9% IV 1,000 ML 999 ML IV CONT (08:49)
[2023-10-09] MEDS: ONDANSETRON INJ 4 MG/2 ML VIAL IV PUSH (08:51)
[2023-10-09] MEDS: KETOROLAC 30 MG/ML VIAL (*BKC) IV PUSH (08:52)
[2023-10-09] MEDS: MAG HYDROX/AL HYDROX/SIMETH 30 ML UDC PO (08:53)
[2023-10-09 09:02] LABS: Alanine Aminotransferase 28 U/L (14-59); Albumin Level 3.3 g/dL (3.4-5.0); Alkaline Phosphatase 62 U/L (46-116); Anion Gap 9 mmol/L (8-16); Aspartate Amino Transferase 21 U/L (15-37); Bilirubin,Total 0.3 mg/dL (0.00-1.00); Blood Urea Nitrogen 10 mg/dL (7-18); Calcium 9.3 mg/dL (8.5-10.1); Carbon Dioxide 29 mmol/L (21-32); Chloride 106 mmol/L (98-108); Estimated CRCL calculation 49 ml/min; Estimated Glomerular Filt Rate 51; Glucose 87 mg/dL (70-99); Lipase 71 U/L (16-77); Osmolality Calculated 296 mOsm/kg (285-295); Potassium 3.7 mmol/L (3.5-5.1); Sodium 144 mmol/L (136-145); Total Protein 6.4 g/dL (6.4-8.2)
[2023-10-09 09:07] LABS: Lactic Acid Reflex 1.5 mmol/L (0.4-2.0)
[2023-10-09 10:03] LABS: Appearance Urine Clear (Clear); Bilirubin Urine Negative (Negative); Blood Urine Negative (Negative); Color Urine Light Yellow (Yellow); Glucose Urine UA Negative (Negative); Ketones Urine Negative (Negative); Leukocyte Esterase Ur Negative LEU/UL (Negative); Nitrate Urine Negative (Negative); Protein Urine Negative (Negative); Urobilinogen Urine 0.2 mg/dL (0.2-1.0)
[2023-10-09 10:07] LABS: Add Urine Microscopic? NO
== END 2023-10-09 10:41 | disposition home or self-care (01) ==
PROVIDERS: Emergency Provider Family Medicine; PCP Internal Medicine
DX: K52.9 Noninfective gastroenteritis and colitis, unspecified (principal); Z79.899 Other long term (current) drug therapy
CPT/HCPCS: 36415; 80053; 81003; 83605; 83690; 85025; 96361; 96374; 96375; 99284; A9270; J1885; J2405; J7030

== ENCOUNTER 2024-01-10 08:35 | Outpatient (CLI) | payer OTHER, SELFPAY ==
--- NOTE | ~2024-01-10 | US_ITS ---
EXAMINATION:US venous doppler LE RT INDICATION:Chronic DVT right lower extremity TECHNIQUE: Multiple grayscale, color flow and Doppler images of the right lower extremity deep venous systems were obtained and reviewed. COMPARISON: Comparison to multiple prior studies sequentially, with oldest reviewed study dated 05/31. FINDINGS: There is chronic deep venous thrombosis of the right common femoral, femoral and popliteal veins. Reflux is noted in the popliteal vein. The remainder of the right lower extremity veins are pa tent with normal flow, compressibility and augmentation. IMPRESSION: 1: Chronic deep venous thrombosis of the right common femoral, femoral and popliteal veins. Reviewed, dictated and finalized at location B. IMPRESSION: 1: Chronic deep venous thrombosis of the right common femoral, femoral and popl iteal veins.
== END 2024-01-10 08:36 | disposition home or self-care (01) ==
LOC: CHSIMG 08:38
PROVIDERS: PCP Internal Medicine; Visit Provider Nurse Practitioner Family
DX: I82.511 Chronic embolism and thrombosis of right femoral vein (principal); I82.531 Chronic embolism and thrombosis of right popliteal vein
CPT/HCPCS: 93971

== ENCOUNTER 2024-02-06 06:58 | Outpatient (CLI) | payer OTHER, SELFPAY ==
[2024-02-06 07:26] LABS: Basophils Absolute Auto 0.08 K/mm3 (0.00-0.10); Basophils Percent Auto 0.8 % (0.0-1.0); Eosinophils Absolute Auto 0.37 K/mm3 (0.02-0.50); Eosinophils Percent Auto 3.7 % (1.0-6.0); Hematocrit 42.6 % (35.0-49.0); Immature Granulocyte Absolute 0.04 K/mm3 (0.00-0.00); Immature Granulocyte Percent A 0.4 % (0.0-0.0); Lymphocytes Absolute Auto 2.23 K/mm3 (1.10-4.50); Lymphocytes Percent Auto 22.1 % (18.0-42.0); Mean Corpuscular HGB Conc 32.9 g/dL (32-36); Mean Corpuscular Volume 100.5 fL (78.0-102.0); Mean Platelet Volume 8.4 fl (9.2-11.8); Monocytes Absolute Auto 0.72 K/mm3 (0.10-0.90); Monocytes Percent Auto 7.1 % (2.0-11.0); Neutrophils Absolute Auto 6.65 K/mm3 (1.70-7.20); Neutrophils Percent Auto 65.9 % (50.0-70.0); Platelet Count Result 321 K/mm3 (150-420); Red Blood Count 4.24 M/mm3 (4.20-5.40); Red Cell Distribution Width 13.6 % (11.6-14.4); White Blood Count 10.1 K/mm3 (4.8-10.8)
[2024-02-08 14:53] LABS: Immunoglobulin G 533 mg/dL (600-1640); Immunoglobulin M 18 mg/dL (50-300)
[2024-02-10 19:44] LABS: Varicella IgM Antibody 0.06
== END 2024-02-06 06:59 | disposition home or self-care (01) ==
LOC: CHSLAB 07:03
PROVIDERS: PCP Internal Medicine; Visit Provider Psychiatry & Neurology Neurology
DX: M30.1 Polyarteritis with lung involvement [Churg-Strauss] (principal); D72.18 Eosinophilia in diseases classified elsewhere; R21 Rash and other nonspecific skin eruption
CPT/HCPCS: 36415; 82784; 85025; 86787

== ENCOUNTER 2024-03-01 07:26 | Outpatient (CLI) | payer OTHER, SELFPAY | END 2024-03-01 07:27 | disposition home or self-care (01) | LOC: CHSLAB 07:30 | PROVIDERS: PCP Internal Medicine | DX: M30.1 Polyarteritis with lung involvement [Churg-Strauss] (principal); D72.18 Eosinophilia in diseases classified elsewhere | CPT/HCPCS: 36415; 86787 ==

== ENCOUNTER 2024-04-16 07:43 | Outpatient (CLI) | payer OTHER, SELFPAY ==
--- NOTE | ~2024-04-16 | MM_ITS ---
EXAMINATION: MM screening maryam BI w mat HISTORY: Screening mammogram TECHNIQUE: Craniocaudal and mediolateral oblique 3-D tomosynthesis images were obtained and synthetic 2-D images were generated. CAD analysis was submitted and interpreted. COMPARISON: 03/24/2023, 03/09/2020 BREAST PARENCHYMAL COMPOSITION:Not Dense. There are scattered areas of fibroglandular density. FINDINGS: No suspicious mass, calcification, or architectural distortion are identified in either twyla ast to suggest malignancy. There has been no suspicious interval change. IMPRESSION: No mammographic evidence of malignancy. Recommend routine screening mammography in one year. BI-RADS Category 1: Negative Reviewed, dictated and finalized at location .
== END 2024-04-16 07:44 | disposition home or self-care (01) ==
LOC: CHSIMG 07:45
PROVIDERS: PCP Internal Medicine; Visit Provider Internal Medicine
DX: Z12.31 Encounter for screening mammogram for malignant neoplasm of breast (principal)
CPT/HCPCS: 77063; 77067

== ENCOUNTER 2024-05-31 08:39 | Outpatient (CLI) | payer OTHER, SELFPAY ==
[2024-05-31 09:09] LABS: Basophils Absolute Auto 0.05 K/mm3 (0.00-0.10); Basophils Percent Auto 0.8 % (0.0-1.0); Eosinophils Absolute Auto 0.44 K/mm3 (0.02-0.50); Eosinophils Percent Auto 6.7 % (1.0-6.0); Hematocrit 46.8 % (35.0-49.0); Hemoglobin 15.6 g/dL (12.0-15.0); Immature Granulocyte Absolute 0.03 K/mm3 (0.00-0.00); Immature Granulocyte Percent A 0.5 % (0.0-0.0); Lymphocytes Percent Auto 24.5 % (18.0-42.0); Mean Corpuscular HGB Conc 33.3 g/dL (32-36); Mean Corpuscular Hemoglobin 34.2 pg (27.0-31.0); Mean Corpuscular Volume 102.6 fL (78.0-102.0); Mean Platelet Volume 9.1 fl (9.2-11.8); Monocytes Absolute Auto 0.37 K/mm3 (0.10-0.90); Monocytes Percent Auto 5.7 % (2.0-11.0); Neutrophils Absolute Auto 4.04 K/mm3 (1.70-7.20); Neutrophils Percent Auto 61.8 % (50.0-70.0); Platelet Count Result 269 K/mm3 (150-420); Red Blood Count 4.56 M/mm3 (4.20-5.40); White Blood Count 6.5 K/mm3 (4.8-10.8)
[2024-06-02 04:03] LABS: Immunoglobulin G 578 mg/dL (600-1640); Immunoglobulin M 17 mg/dL (50-300)
[2024-06-03 14:44] LABS: Varicella IgG Antibody 7.28 S/CO
== END 2024-05-31 08:40 | disposition home or self-care (01) ==
LOC: CHSLAB 08:44
PROVIDERS: PCP Internal Medicine
DX: M30.1 Polyarteritis with lung involvement [Churg-Strauss] (principal); D72.18 Eosinophilia in diseases classified elsewhere
CPT/HCPCS: 36415; 82784; 85025; 86787

== ENCOUNTER 2024-07-05 13:18 | Outpatient (CLI) | payer OTHER, SELFPAY ==
--- NOTE | ~2024-07-05 | US_ITS ---
EXAMINATION: US venous doppler LE RT DATE: 07/05/2024 13:49 INDICATION: Acute embolism and thrombosis. TECHNIQUE: Grayscale ultrasound images without and with compression and Doppler ultrasound images of the right lower extremity veins were obtained. COMPARISON: Ultrasound 01/10/2024 FINDINGS: The visualized portions of right profunda (deep) femoral vein, peroneal veins, posterior tibial veins , and greater saphenous vein outflow are patent. There is thrombus in right common femoral vein, femo ral vein, popliteal vein. IMPRESSION: 1. Chronic deep vein thrombosis involving right common femoral vein, femoral vein, and popliteal vei n without change in distribution. Reviewed, dictated and finalized at location A. ESS CLEANER IMPRESSION: 1. Chronic deep vein thrombosis involving right common femoral vein, femoral v ein, and popliteal vein without change in distribution.
== END 2024-07-05 13:19 | disposition home or self-care (01) ==
LOC: CHSIMG 13:20
PROVIDERS: PCP Internal Medicine; Visit Provider Internal Medicine Hematology & Oncology
DX: I82.411 Acute embolism and thrombosis of right femoral vein (principal); I82.431 Acute embolism and thrombosis of right popliteal vein
CPT/HCPCS: 93971

== ENCOUNTER 2024-08-15 07:16 | Outpatient (CLI) | payer OTHER, SELFPAY ==
[2024-08-15 07:42] LABS: Hematocrit 38.4 % (35.0-49.0); Hemoglobin 12.3 g/dL (12.0-15.0); Mean Corpuscular Hemoglobin 31.6 pg (27.0-31.0); Mean Corpuscular Volume 98.7 fL (78.0-102.0); Mean Platelet Volume 8.1 fl (9.2-11.8); Platelet Count Result 422 K/mm3 (150-420); Red Blood Count 3.89 M/mm3 (4.20-5.40); Red Cell Distribution Width 13.9 % (11.6-14.4); White Blood Count 10.2 K/mm3 (4.8-10.8)
[2024-08-15 07:43] LABS: Add Urine Microscopic? NO; Appearance Urine Clear (Clear); Bilirubin Urine Negative (Negative); Blood Urine Trace-intact (Negative); Color Urine Yellow (Yellow); Glucose Urine UA Negative (Negative); Ketones Urine Negative (Negative); Leukocyte Esterase Ur Negative (Negative); Nitrate Urine Negative (Negative); Protein Urine Negative (Negative); Specific Grav Ur 1.015 (1.010-1.020); Urobilinogen Urine 0.2 mg/dL (0.2-1.0)
[2024-08-15 08:35] LABS: Alanine Aminotransferase 22 U/L (14-59); Albumin Level 2.9 g/dL (3.4-5.0); Alkaline Phosphatase 95 U/L (46-116); Anion Gap 12 mmol/L (4-12); Aspartate Amino Transferase < 10 U/L (15-37); Bilirubin,Total 0.4 mg/dL (0.00-1.00); Blood Urea Nitrogen 9 mg/dL (7-18); Calcium 9.4 mg/dL (8.5-10.1); Carbon Dioxide 29 mmol/L (21-32); Chloride 106 mmol/L (98-108); Cholesterol 160 mg/dL (0-200); Estimated Glomerular Filt Rate > 60; Glucose 88 mg/dL (70-99); HDL Direct 55 mg/dL (40-60); LDL Cholesterol Calculated 86 mg/dL (<130); Osmolality Calculated 301 mOsm/kg (285-295); Potassium 4.8 mmol/L (3.5-5.1); Sodium 147 mmol/L (136-145); Thyroid Stimulating Hormone 1.61 uIU/mL (0.36-3.74); Triglycerides 94 mg/dL (0-150)
== END 2024-08-15 07:17 | disposition home or self-care (01) ==
PROVIDERS: PCP Internal Medicine; Visit Provider Internal Medicine
DX: M30.1 Polyarteritis with lung involvement [Churg-Strauss] (principal); D72.18 Eosinophilia in diseases classified elsewhere
CPT/HCPCS: 36415; 80053; 80061; 81003; 84443; 85027

== ENCOUNTER 2025-01-13 10:10 | Outpatient (CLI) | payer MEDICARE, SELFPAY ==
--- NOTE | ~2025-01-13 | XR_ITS ---
Right Shoulder Technique: AP and scapular Y views were obtained. Clinical History: Pain Findings: No fracture or dislocation is seen. Osseous alignment is anatomic. The glenohumeral joint i s intact. There is mild AC joint degenerative change. Soft tissues are unremarkable. Calcified right upper lobe granuloma noted. Impression: Mild AC joint degenerative change. Reviewed, dictated and finalized at location . Impression: Mild AC joint degenerative change.
--- OUTSIDE RECORDS SUMMARY | 2025-01-13 11:05 | XMS_ITS | Referral Summary ---
Author Organization [facility] Address [address] [place] [address] Care Team Providers Care District Plant Engineer Name Role Phone Bairon Cardona MD Primary Care Provider [phone] Emily Cabrera OD Unavailable Rey Fine MD Unavailable [phone] Jose Emerson MD Unavailable [phone] Encounters Date Type Department Care Team Description 11/18/2024 4:50 PM CDT Lab [facility] ([facility] [address] [place] [address] Mononeuritis multiplex associated with vasculitis; Eosinophilic granulomatosis with polyangiitis (EGPA) (HCC) 11/18/2024 12:30 PM CDT Office Visit [facility] Neuro Muscle [address] [facility] Medicine 6th [place] [address] Any Saeed NP Mononeuritis multiplex associated with vasculitis (Primary Dx); Eosinophilic granulomatosis with polyangiitis (EGPA) (HCC) 11/18/2024 10:30 AM CDT Office Visit [facility] Rheumatology [address] [facility] Medicine 5th [place] [address] Macey Rader MD 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) (Primary Dx); High risk medication use; Mononeuritis multiplex associated with vasculitis 10/23/2024 Orders Only [facility] Neuro Muscle [address] [facility] Medicine [address] [place] [address] [place] [address] Otilia Hawkins CMA Mononeuritis multiplex associated with vasculitis (Primary Dx) from Last 3 Months Allergies No known active allergies Medications albuterol HFA (PROVENTIL HFA,VENTOLIN HFA,PROAIR HFA) 90 mcg/actuation inhaler Inhale 2 puffs every 6 (six) hours as needed Active multivitamin capsule Take 1 capsule by mouth daily Active cetirizine (ZyrTEC) 10 mg tablet Take 1 tablet (10 mg total) by mouth daily 30 tablet 11 2 Active fluticasone propionate (FLONASE) 50 mcg/actuation nasal spray Administer 2 sprays into each nostril daily 1 each 2 Active zolpidem (AMBIEN) 10 mg tablet TAKE 1/2 TO 1 TABLET BY MOUTH DAILY AT BEDTIME 3 Active fluticasone-ume clidin-vilanter (Trelegy Ellipta) 200-62.5-25 mcg inhaler Inhale 1 puff daily Active apixaban (ELIQUIS) 5 mg tablet Take 1 tablet (5 mg total) by mouth 2 (two) times a day Active rosuvastatin (CRESTOR) 5 mg tablet Take 1 tablet (5 mg total) by mouth daily Active gabapentin (NEURONTIN) 300 mg capsuleIndicati ons:Mononeuriti s multiplex associated with vasculitis Take 1 capsule (300 mg total) by mouth 2 (two) times a day Take 300 mg in the AM and 300 mg WITH the 600 mg tablet for a combined 900 mg at night. 60 capsule 4 02/28/20 25 Active gabapentin (NEURONTIN) 600 mg tabletIndicatio ns:Neuropathic Pain Take 1 tablet (600 mg total) by mouth nightly Take with 300 mg capsule for 900 mg total nightly. 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 - Exam today with improved visual acuity (VA) from prior, stable ganglion cell layer (GCL) thinning and Staples visual field (HVF) defect, increased superior and inferior thinning on RNFL Discussed findings with patient. Also discussed with patient that progressive thinning can be seen up to 12 weeks from symptom onset but that recovery of some vision is possible, as was seen today from prior exams PLAN: - Continue medical management per Dr. Fine - RTC 3 months in neuro-op with repeat testing Assessment & Plan (06/12/2022 6:41 PM PHONE CIRCUIT OPERATOR): - Seen by inpatient consult team on 05/07/22 for vision changes OS, found to have unilateral disc edema, rAPD, and decreased color vision OS with preserved VA. - Work-up notable for +p-ANCA (anti-MPO abs), MRI with enhancement of left optic nerve sheath, LP with basic studies, IgG index, bacterial/fungal cultures, and oligoclonal bands unrevealing. - Underwent treatment with 5 g of Solu-Medrol inpatient and was discharged with close follow-up with neuroimmunology (Dr. Fine) with a plan to continue 1g Solu-Medrol weekly. However were unable to coordinate so patient subsequently switched to weekly steroid pulses of 500mg PO prednisone. Dr. Fine also working to get patient on rituximab. TODAY: - VA 20/20 OD, 20/60 pinhole (ph) 20/25 OS, color full OU, large rAPD OS - OS: No ON edema, small area of heme within cup temporally, just inferior to disc, and alongside nasal border of disc, area of whitening (?ischemia vs fluid) tracking from nerve, inferotemporal to nerve - Testing notable for the following: OCT rnfl with only mild inf thinning OD, full OS. GCL normal OD, diffuse thinning OS (77 microns OD, 61 microns OS), HVF 24-2 normal OD, SA/IA, FT 29 OS PLAN: - medical management per Dr. Fine (neuroimmunology) - Will arrange follow-up with our neuro-ophthalmology colleagues Patient instructed to call for any new vision loss, pain, photophobia, flashes, floaters, curtains, or any other concerning ocular changes. She expresses understanding and agrees to call with any concerns. 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 05/10/2022 Visual field defect of right eye 05/07/2022 Resolved Problems Problem Noted Date Diagnosed Date Resolved Date Other inflammatory polyneuropathies 05/10/2022 05/20/2022 Immunizations Immunization Administration Dates Next Due Influenza, Unspecified 03/31/2022 Social History Tobacco Use Types Packs/Day Years Used Date Smoking Tobacco: Never Passive Smoke Exposure: Never Smokeless Tobacco: Never Tobacco Cessation:Counseling Given: Not Answered Comments No Sex and Gender Information Value Date Recorded Sex Assigned at Not on file Legal Sex Female 8:34 AM PHONE CIRCUIT OPERATOR Gender Identity Not on file Sexual Orientation Not on file Last Filed Vital Signs Vital Sign Reading Time Taken Comments Blood Pressure 135/85 11/18/2024 11:32 AM CDT Pulse 80 11/18/2024 11:32 AM CDT Temperature 36.6 C (97.9 F) 11/18/2024 10:14 AM CDT Respiratory Rate 16 07/18/2024 2:33 PM PHONE CIRCUIT OPERATOR Oxygen Saturation 99% 07/18/2024 2:33 PM PHONE CIRCUIT OPERATOR Inhaled Oxygen Concentration - - Weight 69.9 kg (154 lb) 11/18/2024 11:32 AM CDT Height 157.5 cm (5' 2) 11/18/2024 11:32 AM CDT Body Mass Index 28.17 11/18/2024 11:32 AM CDT Plan of Treatment Not on file Procedures Procedure Name Priority Date/Time Associated Diagnosis Comments NEUROMUSCULAR SPECIMEN TRACKING OUTPATIENT Routine 11/21/2024 2:13 PM CDT 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) EGFR Routine 11/18/2024 2:08 PM CDT Mononeuritis multiplex associated with vasculitis DIFFERENTIAL AUTO Routine 11/18/2024 2:0 8 PM CDT Mononeuritis multiplex associated with vasculitis IMMUNE COMPETENCE Routine 11/18/2024 2:0 8 PM CDT 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) COMPREHENSIVE METABOLIC PANEL Routine 11/18/2024 2:08 PM CDT Mononeuritis multiplex associated with vasculitis CBC WITH AUTO DIFFERENTIAL Routine 11/18/2024 2:08 PM CDT Mononeuritis multiplex associated with vasculitis NEUROMUSCULAR TESTING Routine 11/18/2024 12:00 AM CDT 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 73 m2 Comment: Interpretive Data Reference Interval Normal >/= 90 mL/min/1.73m2 Mildly decreased* 60 - 89 mL/min/1.73m2 Mildly to moderately decreased 45 - 59 mL/min/1.73m2 Moderately to severely decreased 30 - 44 mL/min/1.73m2 Severely decreased 15 - 29 mL/min/1.73m2 Kidney Failure < 15 mL/min/1.73m2 *Relative to young adult level Estimated glomerular filtration rate is determined by the 2020 CKD-EPI equation recommended by the National Kidney Foundation (A Unifying Approach to GFR Estimation: Recommendations of the NKF-ASK Task Force on Reassessing the Inclusion of Race in Diagnosing Kidney Disease, JASN 2020). The CKD-EPI equation should not be used for patients with unstable renal function and has not been validated in children and those over 70. Current interpretive data was last reviewed 2021. Blood 11/18/2024 2:08 PM CDT 11/18/2024 2:53 PM CDT us Any Manecca Christophe LASTING FLOORWORKER LAB BLOOD ORDERABLES F inal Result [facility] [place] [address] * Differential, auto (11/18/2024 2:08 PM CDT) [facility] Neutrophil abs 4.59 1.50 - 6.50 K/cumm Imm gran abs 0.02 0.00 - 0.10 K/cumm [facility] Lymphocyte abs 1.93 0.80 - 3.30 K/cumm [facility] Monocyte abs 0.47 0.20 - 0.80 K/cumm [facility] Eosinophil abs 0.39 0.00 - 0.50 K/cumm [facility] Basophil abs 0.06 0.00 - 0.10 K/cumm [facility] Neutrophil pct 61.5 % [facility] Comment: Interpretive Data Percent cell count reference ranges are not reported, since discordance with absolute values may lead to misinterpretation of CBC data. Current Interpretive Data was last revised on 2017. Imm gran pct 0.3 % [facility] Comment: Interpretive Data Percent cell count reference ranges are not reported, since discordance with absolute values may lead to misinterpretation of CBC data. Current Interpretive Data was last revised on 2017. Lymphocyte pct 25.9 % [facility] Comment: Interpretive Data Percent cell count reference ranges are not reported, since discordance with absolute values may lead to misinterpretation of CBC data. Current Interpretive Data was last revised on 2017. Monocyte pct 6.3 % [facility] Comment: Interpretive Data Percent cell count reference ranges are not reported, since discordance with absolute values may lead to misinterpretation of CBC data. Current Interpretive Data was last revised on 2017. Eosinophil pct 5.2 % [facility] Comment: Interpretive Data Percent cell count reference ranges are not reported, since discordance with absolute values may lead to misinterpretation of CBC data. Current Interpretive Data was last revised on 2017. Basophil pct 0.8 % [facility] Comment: Interpretive Data Percent cell count reference ranges are not reported, since discordance with absolute values may lead to misinterpretation of CBC data. Current Interpretive Data was last revised on 2017. Blood 11/18/2024 2:08 PM CDT 11/18/2024 2:44 PM CDT us Any Saeed NP LAB BLOOD ORDERABLES F inal Result [facility] [place] [address] * (ABNORMAL) Immune competence (11/18/2024 2:08 PM CDT) CD3 pct 84 60 - 88 % CD3 Absolute 1,542 661 - 1,963 cells/mcL [facility] CD4 pct 68(H) 31 - 64 % [facility] CD4 Absolute 1,234 365 - 1,294 cells/mcL [facility] CD8 pct 16 12 - 40 % [facility] CD8 Absolute 294 187 - 781 cells/mcL [facility] CD19 pct 1(L) 6 - 25 % [facility] CD19 Absolute <25(L) 86 - 488 cells/mcL [facility] Comment:Verified [id number] pct 15 5 - 25 % [facility] [id number] Absolute 289 76 - 467 cells/mcL [facility] CD4/CD8 ratio 4.2 [facility] Blood 11/18/2024 2:08 PM CDT 11/18/2024 2:44 PM CDT Any Saeed LASTING FLOORWORKER LAB BLOOD ORDERABLES F inal Result [facility] [place] [address] * (ABNORMAL) CBC with auto differential (11/18/2024 2:08 PM CDT) [facility] WBC 7.46 3.80 - 9.90 K/cumm Hgb 13.2 11.9 - 15.5 g/dL [facility] Hct 40.7 35.6 - 45.5 % [facility] Plt 385 150 - 400 K/cumm [facility] MPV 8.7(L) 9.1 - 12.3 fL [facility] RBC 4.34 3.90 - 5.20 M/cumm [facility] MCV 93.8 81.3 - 96.4 fL [facility] MCH 30.4 27.1 - 33.3 pg [facility] MCHC 32.4 32.3 - 35.7 g/dL [facility] RDW CV 15.7(H) 11.1 - 14.9 % [facility] RDW SD 54.6(H) 35.7 - 48.1 fL [facility] NRBC abs 0.00 0.00 - 0.01 K/cumm [facility] Blood 11/18/2024 2:08 PM CDT 11/18/2024 2:44 PM CDT Any Saeed LASTING FLOORWORKER LAB BLOOD ORDERABLES F inal Result [facility] [place] [address] * Comprehensive metabolic panel (11/18/2024 2:08 PM CDT) Sodium 144 135 - 145 mmol/L Potassium, pl 4.0 3.3 - 4.9 mmol/L [facility] Chloride 103 97 - 110 mmol/L [facility] CO2 31 22 - 32 mmol/L [facility] Anion gap 10 2 - 15 mmol/L [facility] BUN 12 6 - 25 mg/dL [facility] Creatinine 0.94 0.60 - 1.10 mg/dL [facility] Glucose 79 70 - 199 mg/dL [facility] Comment: Interpretive Data Fasting glucose >/= 126 mg/dl is diagnostic for diabetes. Fasting is defined as no caloric intake for at least 8 hours. Fasting glucose between 100 mg/dl to 125 mg/dl is diagnostic of prediabetes. In a patient with classic symptoms of hyperglycemia or hyperglycemic crisis, a random glucose >/= 200 mg/dl is diagnostic for diabetes. In the absence of unequivocal hyperglycemia, results should be confirmed by repeat testing. The classification and Diagnosis of Diabetes Diabetes Care 2021; 46: S19-S40. Current interpretive data was last revised 2022. Calcium 9.9 8.5 - 10.3 mg/dL [facility] Bilirubin, total 0.2 0.1 - 1.2 mg/dL [facility] Protein, pl 7.0 6.5 - 8.5 g/dL [facility] Albumin 4.1 3.5 - 5.0 g/dL [facility] Alk phos 92 40 - 130 Units/L [facility] ALT 19 7 - 45 Units/L [facility] AST 24 10 - 45 Units/L [facility] Blood 11/18/2024 2:08 PM CDT 11/18/2024 2:44 PM CDT Any Saeed LASTING FLOORWORKER LAB BLOOD ORDERABLES F inal Result [facility] [place] [address] * Neuromuscular Testing Blood (11/18/2024 12:00 AM CDT) Blood (Serum) 11/18/2024 11/19/2024 Narrative [facility] - 12/12/2024 3:46 PM CDT Please click on the PDF link to view the report containing this result us Any Saeed NP LAB PATHOLOGY ORDERABL ES Final Result Performing Organization Address City/[facility] [address]/ZIP Co de Phone Number NEUROMUSCULAR CLINICAL LABORATORY Room [address] [place] [address] * Hepatitis C antibody (05/12/2022 11:32 AM CDT) Hep C Ab Nonreactive Nonreactive [facility] Comment:Antibodies to HCV no t detected. Does NOT exclude the possibility of recent exposure to HCV. Blood 05/12/2022 11:3 2 AM CDT 05/12/2022 11:52 AM CDT Joselito Mix MD LAB MICROBIOLOGY - GENE RAL ORDERABLES Edited Result - Final Performing Organization Address [facility] [address]/ZIP Co de Phone Number [facility] [place] [address] from Last 3 Months or Most Recently Relevant to Health Maintenance Insurance [facility] MEDICARE AETNA SENIOR SUPPLEMENT [facility] CHOICE PLUS [facility] HMO/PPO Address: [address] [address] [place] [address] MEDICARE AETNA SENIOR SUPPLEMENT [address] CHOICE PLUS [facility] HMO/PPO Address: [address] [address] [place] [address] Advance Directives For more information, please contact: [phone] * Full Code (Latest Code Status on File) Date Activated Date Inactivated Comments 07/06/2022 3:58 PM 07/15/2022 12:39 AM * Full Code Date Activated Date Inactivated Comments 05/08/2022 12:10 AM 05/12/2022 6:12 PM Care Teams District Plant Engineer Relationship Specialty Start Date End Date Bairon Cardona MD PCP - General Internal Medicine 05/11/22 Emily Cabrera OD [address] [place] [address] Primary Eye Care Provider Optometry 07/04/22 Rey Fine MD [address] [place] [address] Neurologist Neurology 07/04/22 [place] [id number] [address] Consulting Physician Pulmonary Disease 07/04/22
--- OUTSIDE RECORDS SUMMARY | 2025-01-13 11:05 | XMS_ITS | Clinical Summary ---
Author Organization [facility] Thuy Lesliejoseluis Address [address] [place] [address] Care Team Providers Care Prn Physical Therapist Name Role Phone Bairon Cardona MD Primary Care Provider [phone] Allergies No known active allergies Medications albuterol sulfate HFA 90 mcg/actuation aerosol inhaler Take 2 Puffs by inhalation every 6 hours as needed. 3 Active fluticasone-ume clidinium-vilan terol (Trelegy Ellipta) 200-62.5-25 mcg Disk with Device Take 1 Puff by inhalation daily. Active gabapentin (NEURONTIN) 300 mg capsule Take 300 mg by mouth 3 times daily. Active ascorbic acid (VITAMIN C) 500 mg Tablet, Chewable Take 500 mg by mouth. Active cholecalciferol 1,250 mcg (50,000 unit) Capsule Take by mouth. Activ e rosuvastatin (CRESTOR) 5 mg tablet Take 5 mg by mouth daily. Active zolpidem (AMBIEN) 10 mg tablet Take 10 mg by mouth nightly as needed for Insomnia. Active valACYclovir (VALTREX) 1 gram tablet Take 500 mg by mouth daily. 4 Active apixaban (ELIQUIS) 5 mg tablet Take 1 Tablet (5 mg) by mouth 2 times daily. 60 Tablet 3 5 Active Active Problems Problem Noted Date Diagnosed Date Acute deep vein thrombosis (DVT) of right lower extremity 05/08/2023 Pain and swelling of left lower leg 05/08/2023 Encounters Date Type Department Care Team Description 12/24/2024 External Device Data [facility] Provider, Abstract 12/17/2024 External Device Data [facility] Provider, Abstract 10/29/2024 External Device Data [facility] Provider, Abstract 10/16/2024 External Device Data [facility] Provider, Abstract from Last 3 Months Family History Medical History Relation Name Comments Diabetes Brother 1 Diabetes Brother 2 Heart Disease Mother Relation Name Status Comments Brother 1 Alive Brother 2 Alive Father Alive Mother Alive Social History Tobacco Use Types Packs/Day Years Used Date Smoking Tobacco: Never Smokeless Tobacco: Never Tobacco Cessation:Counseling Given: Not Answered Alcohol Use Standard Drinks/Week Comments Yes 0 (1 standard drink = 0.6 oz pur e alcohol) ocassionally Comments Unknown Sex and Gender Information Value Date Recorded Sex Assigned at Female 07/08/2024 4:18 PM PLATE STACKER HAND Legal Sex Female 9:26 AM CDT Gender Identity Female 07/08/2024 4:18 PM PLATE STACKER HAND Sexual Orientation Not on file Last Filed Vital Signs Vital Sign Reading Time Taken Comments Blood Pressure 119/77 07/16/2024 3:07 PM PLATE STACKER HAND Pulse 112 07/16/2024 3:07 PM PLATE STACKER HAND Temperature 36.9 C (98.5 F) 07/16/2024 3:07 PM PLATE STACKER HAND Respiratory Rate 16 07/16/2024 3:07 PM PLATE STACKER HAND Oxygen Saturation 92% 07/16/2024 3:07 PM PLATE STACKER HAND Inhaled Oxygen Concentration - - Weight 72.6 kg (160 lb) 07/16/2024 3:07 PM PLATE STACKER HAND Height - - Body Mass Index - - Plan of Treatment Upcoming Encounters Date Type Department Care Team (Late st Contact Info) Description 07/18/2025 8:45 AM PLATE STACKER HAND Office Visit [facility] [address] [facility] [address] [place] [address] Sukhjinder Joshi MD [address] [facility] [address] [place] [address] Health Maintenance Due Date Last Done Comments Pre-Diabetes and Diabetes Screening 1964 HPV/Cotest (21-29) 1985 CERVICAL CANCER SCREENING 1994 HPV/Cotest (30-65) 1994 PAP SMEAR 1994 COLORECTAL SCREENING 2009 Colorectal Cancer Screening 2009 FIT-DNA Q 3 years 2009 FIT/FOBT Q 1 year 2009 Flex Sig/CT Colonography Q 5 years 2009 ZOSTER VACCINE (1 of 2) 2014 BREAST CANCER SCREENING 03/23/2023 03/23/20, 03/23/2022, 03/16/2021 INFLUENZA VACCINE (#1) 2024 DTAP/TDAP/TD VACCINES (3 - T d or Tdap) 11/04/2033 11/05/2023, 05/21/2014 RSV VACCINE (60+ or ) (1 - 1-dose 75+ series) 11/30/2039 HEPATITIS B VACCINES Aged Out No long er eligible based on patient's age to complete this topic Insurance [facility] MEDICAID Care Teams Prn Physical Therapist Relationship Specialty Start Date End Date Bairon Cardona MD [address] [place] [address] PCP - General Internal Medicine 02/09/23
--- OUTSIDE RECORDS SUMMARY | 2025-01-13 11:05 | XMS_ITS | Encounter Summary ---
Author Organization [facility] Address [facility] [place] [address] Care Team Providers Care Supervisor Hand Workers Name Role Phone Bairon Cardona MD Primary Care Provider [phone] Encounter Details Date Type Department Care Team ([facility] st Contact Info) Description 01/05/2019 Abstract [facility] CONVERSION [address] [place] [address] , Generic Conversion, Social History Tobacco Use Types Packs/Day Years Used Date Smoking Tobacco: Never Assessed Comments Unknown Sex and Gender Information Value Date Recorded Sex Assigned at Not on file Legal Sex Female 6:55 PM CDT Gender Identity Not on file Sexual Orientation Not on file documented as of this encounter Plan of Treatment Not on file documented as of this encounter Visit Diagnoses Not on filedocumented in this encounter Additional Health Concerns Infection Onset Date Last Indicated Resolved Time COVID-19 Rule Out 02/02/2021 02/02/2021 02/04/2021 2:46 AM CDT COVID-19 Rule Out 05/06/2022 05/06/2022 05/06/2022 2:43 AM CDT documented as of this encounter Care Teams Supervisor Hand Workers Relationship Specialty Start Date End Date Bairon Cardona MD [address] [place] [id number] PCP - General INTERNAL MEDICINE 09/27/19 documented as of this encounter
--- OUTSIDE RECORDS SUMMARY | 2025-01-13 11:05 | XMS_ITS | Clinical Summary ---
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 [...] testing Assessment & Plan (06/12/2022 6:41 PM FISHER QUAHOG): - Seen by inpatient consult team on [...] Resolved Date Other inflammatory polyneuropathies 05/10/2022 05/20/2022 Encounters Date Type Department Care Team Description 11/18/2024 4:50 PM CDT Lab [facility] Advanced Medicine [facility] Advanced Medicine ([facility]) [address] [place] [id number] Mononeuritis multiplex associated with vasculitis; Eosinophilic granulomatosis with polyangiitis (EGPA) ([facility]) 11/18/2024 12:30 PM CDT Office Visit [facility] Neuro Muscle [address] [place] [id number] Any Saeed NP Mononeuritis multiplex associated with vasculitis (Primary Dx); Eosinophilic granulomatosis with polyangiitis (EGPA) ([facility]) 11/18/2024 10:30 AM CDT Office Visit [facility] Rheumatology [address] [place] [address] Macey Rader MD 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 ([facility]) (Primary Dx); High risk medication use; Mononeuritis multiplex associated with vasculitis 10/23/2024 Orders Only [facility] Neuro Muscle [address] [place] [phone] Otilia Hawkins CMA Mononeuritis multiplex associated with vasculitis (Primary Dx) from Last 3 Months Immunizations Immunization Administration Dates Next Due Influenza, Unspecified 03/31/2022 Medical History Medical History Date Comments Asthma Family History Medical History Relation Name Comments Diabetes Brother Arthritis Mother Fibromyalgia Mother Osteoarthritis Mother Relation Name Status Comments Brother Mother Social History Tobacco Use Types Packs/Day Years Used Date Smoking Tobacco: Never Passive Smoke Exposure: Never Smokeless Tobacco: Never Tobacco Cessation:Counseling Given: Not Answered Comments No Sex and Gender Information Value Date Recorded Sex Assigned at Not on file Legal Sex Female 8:34 AM FISHER QUAHOG Gender Identity Not on file Sexual Orientation Not on file Obstetrics History Last Filed Vital Signs Vital Sign Reading Time Taken Comments Blood Pressure 135/85 11/18/2024 11:32 AM CDT Pulse 80 11/18/2024 11:32 AM CDT Temperature 36.6 C (97.9 F) 11/18/2024 10:14 AM CDT Respiratory Rate 16 07/18/2024 2:33 PM FISHER QUAHOG Oxygen Saturation 99% 07/18/2024 2:33 PM FISHER QUAHOG Inhaled Oxygen Concentration - - Weight 69.9 kg (154 lb) 11/18/2024 11:32 AM CDT Height 157.5 cm (5' 2) 11/18/2024 11:32 AM CDT Body Mass Index 28.17 11/18/2024 11:32 AM CDT Plan of Treatment Health Maintenance Due Date Last Done Comments Cervical Cancer Screening 1964 Colon Cancer Screening-Colonoscopy 1964 Depression Screening 1964 Regular Well Visit/Exam 18-64 1982 Zoster Vaccine (1 of 2) 11/30/1983 Pneumococcal vaccine <65 (2 of 2 - PPSV23) 06/22/2016 04/27/2016 Breast Cancer Screening-Mammogram 03/23/2023 03/23/2022, 03/23/2022, 03/23/2022, Additional history exists Covid-19 Vaccine ( - 2023-2 5 season) 2024 06/04/2021, 09/19/2020, 08/22/2020 Influenza Vaccine (Season Ended) 2025 04/27/2023, 04/27/2022, 03/31/2022, Additional history exists DTaP/Tdap/Td Vaccine (3 - Td or Tdap) 11/04/2033 11/05/2023, 05/21/2014 Hepatitis B Screening Completed 05/12/2022 Hepatitis C Screening Completed 05/12/2022 Procedures Procedure Name Priority Date/Time Associated Diagnosis [...] (11/21/2024 2:13 PM CDT) Blood Narrative [facility] - 11/21/2024 2:13 PM CDT Blood draw complete us Any Manecca Christophe ASBESTOS CEMENT SHEET SUPERVISOR LAB BLOOD ORDERABLES F inal Result [facility] [place] [address] * eGFR (11/18/2024 2:08 PM CDT) eGFR [...] CDT 11/18/2024 2:53 PM CDT us Any Saeed ASBESTOS CEMENT SHEET SUPERVISOR LAB BLOOD ORDERABLES F inal Result [facility] Department [place] [address] * Differential, auto (11/18/2024 2:08 PM CDT) Neutrophil abs 4.59 1.50 - 6.50 K/cumm Imm gran abs 0.02 0.00 - 0.10 K/cumm [facility] Lymphocyte abs 1.93 0.80 - 3.30 K/cumm [facility] Monocyte abs 0.47 0.20 - 0.80 K/cumm [facility] Eosinophil abs 0.39 0.00 - 0.50 K/cumm [facility] Basophil abs 0.06 0.00 - 0.10 K/cumm [facility] Neutrophil pct 61.5 % [facility] Comment: Interpretive Data Percent cell count reference ranges are not reported, since discordance with absolute values may lead to misinterpretation of CBC data. Current Interpretive Data was last revised on 2017. Imm gran pct 0.3 % [facility] Comment: Interpretive Data Percent cell count reference ranges are not reported, since discordance with absolute values may lead to misinterpretation of CBC data. Current Interpretive Data was last revised on 2017. Lymphocyte pct 25.9 % [facility] Comment: Interpretive Data Percent cell count reference ranges are not reported, since discordance with absolute values may lead to misinterpretation of CBC data. Current Interpretive Data was last revised on 2017. Monocyte pct 6.3 % [facility] Comment: Interpretive Data Percent cell count reference ranges are not reported, since discordance with absolute values may lead to misinterpretation of CBC data. Current Interpretive Data was last revised on 2017. Eosinophil pct 5.2 % [facility] Comment: Interpretive Data Percent cell count reference ranges are not reported, since discordance with absolute values may lead to misinterpretation of CBC data. Current Interpretive Data was last revised on 2017. Basophil pct 0.8 % [facility] Comment: Interpretive Data Percent cell count reference ranges are not reported, since discordance with absolute values may lead to misinterpretation of CBC data. Current Interpretive Data was last revised on 2017. Blood 11/18/2024 2:08 PM CDT 11/18/2024 2:44 PM CDT Any Sakshi Saeed ASBESTOS CEMENT SHEET SUPERVISOR LAB BLOOD ORDERABLES F inal Result [facility] [place] [address] * (ABNORMAL) Immune competence (11/18/2024 2:08 PM CDT) Pathologist [facility] CD3 pct 84 60 - 88 % CD3 Absolute 1,542 661 - 1,963 cells/mcL [facility] CD4 pct 68(H) 31 - 64 % [facility] CD4 Absolute 1,234 365 - 1,294 cells/mcL [facility] CD8 pct 16 12 - 40 % [facility] CD8 Absolute 294 187 - 781 cells/mcL [facility] CD19 pct 1(L) 6 - 25 % [facility] CD19 Absolute <25(L) 86 - 488 cells/mcL [facility] Comment:Verified [id number] pct 15 5 - 25 % [facility] [id number] Absolute 289 76 - 467 cells/mcL [facility] CD4/CD8 ratio 4.2 [facility] Blood 11/18/2024 2:08 PM CDT 11/18/2024 2:44 PM CDT Any Sakshi Saeed ASBESTOS CEMENT SHEET SUPERVISOR LAB BLOOD ORDERABLES F inal Result Performing Organization Address City/[facility]/ZIP Co de Phone Number [facility] Department [place] [address] * (ABNORMAL) CBC with auto differential (11/18/2024 2:08 PM CDT) [facility] WBC 7.46 3.80 - 9.90 K/cumm Hgb 13.2 11.9 - 15.5 g/dL [facility] Hct 40.7 35.6 - 45.5 % [facility] Plt 385 150 - 400 K/cumm [facility] MPV 8.7(L) 9.1 - 12.3 fL [facility] RBC 4.34 3.90 - 5.20 M/cumm [facility] MCV 93.8 81.3 - 96.4 fL [facility] MCH 30.4 27.1 - 33.3 pg [facility] MCHC 32.4 32.3 - 35.7 g/dL [facility] RDW CV 15.7(H) 11.1 - 14.9 % [facility] RDW SD 54.6(H) 35.7 - 48.1 fL [facility] NRBC abs 0.00 0.00 - 0.01 K/cumm [facility] Blood 11/18/2024 2:08 PM CDT 11/18/2024 2:44 PM CDT us Any Sakshi Christophe ASBESTOS CEMENT SHEET SUPERVISOR LAB BLOOD ORDERABLES F inal Result [facility] [address] [facility] Department [place] [address] * Comprehensive metabolic panel (11/18/2024 2:08 PM CDT) Sodium 144 135 - 145 mmol/L Potassium, pl 4.0 3.3 - 4.9 mmol/L [facility] Chloride 103 97 - 110 mmol/L [facility] CO2 31 22 - 32 mmol/L [facility] Anion gap 10 2 - 15 mmol/L [facility] BUN 12 6 - 25 mg/dL [facility] Creatinine 0.94 0.60 - 1.10 mg/dL [facility] Glucose 79 70 - 199 mg/dL [facility] Comment: Interpretive Data Fasting glucose >/= 126 [...] classification and Diagnosis of Diabetes Diabetes Care 202; 46: S19-S40. Current interpretive data was last revised 2022. Calcium 9.9 8.5 - 10.3 mg/dL [facility] Bilirubin, total 0.2 0.1 - 1.2 mg/dL [facility] Protein, pl 7.0 6.5 - 8.5 g/dL [facility] Albumin 4.1 3.5 - 5.0 g/dL [facility] Alk phos 92 40 - 130 Units/L [facility] ALT 19 7 - 45 Units/L [facility] AST 24 10 - 45 Units/L [facility] Blood 11/18/2024 2:08 PM CDT 11/18/2024 2:44 PM CDT Any Saeed NP LAB BLOOD ORDERABLES F inal Result [facility] Department [place] [address] * Neuromuscular Testing Blood (11/18/2024 12:00 AM CDT) Blood (Serum) 11/18/2024 11/19/2024 Narrative [facility] - 12/12/2024 3:46 PM CDT Please click on the PDF link to view the report containing this result Any Saeed NP LAB PATHOLOGY ORDERABL ES Final Result [facility] Room [address] [place] [address] * Hepatitis C antibody (05/12/2022 11:32 AM CDT) Hep C Ab Nonreactive Nonreactive [facility] Comment:Antibodies to HCV no t detected. Does NOT exclude the possibility of recent exposure to HCV. Blood 05/12/2022 11:3 2 AM CDT 05/12/2022 11:52 AM CDT us Joselito Mix MD LAB MICROBIOLOGY - GENE RAL ORDERABLES Edited Result - Final [facility] [address] [facility] Department [place] [address] from Last 3 Months or Most Recently Relevant to Health Maintenance Insurance [facility] MEDICARE AETNA SENIOR SUPPLEMENT [facility] CHOICE PLUS MEDICARE AETNA SENIOR SUPPLEMENT [address] CHOICE PLUS Advance Directives For more information, please contact: [phone] * Full Code (Latest Code Status on File) Date Activated Date Inactivated Comments 07/06/2022 3:58 PM 07/15/2022 12:39 AM * Full Code Date Activated Date Inactivated Comments 05/08/2022 12:10 AM 05/12/2022 6:12 PM Care Teams Rotary Soil Stabilizer Operator Relationship Specialty Start Date End Date Bairon Cardona MD PCP - General Internal Medicine 05/11/22 Emily Cabrera, OD [address] [place] [address] Primary Eye Care Provider Optometry 07/04/22 Rey Fine MD [address] [place] [address] Neurologist Neurology 07/04/22 [place] [id number] [address] Consulting Physician Pulmonary Disease 07/04/22
--- OUTSIDE RECORDS SUMMARY | 2025-01-13 11:05 | XMS_ITS | Encounter Summary ---
Author Organization [facility] Address [address] [place] [address] Phone Care Team Providers Care Director Of Corporate Strategy Name Role Phone Bairon Cardona MD Primary Care Provider [phone] Emily Cabrera OD Unavailable Rey Fine MD Unavailable [phone] Jose Emerson MD Unavailable [phone] Encounter Details Date Type Department Care Team (Late st Contact Info) Description 12/07/2022 Orders Only [facility] Scanning, Provider Social History Tobacco Use Types Packs/Day Years Used Date Smoking Tobacco: Never Passive Smoke Exposure: Never Smokeless Tobacco: Never Comments No Sex and Gender Information Value Date Recorded Sex Assigned at Not on file Legal Sex Female 8:34 AM EMPLOYEE RELATION MANAGER Gender Identity Not on file Sexual Orientation Not on file documented as of this encounter Plan of Treatment Not on file documented as of this encounter Procedures Procedure Name Priority Date/Time Associated Diagnosis Comments SCAN - LABS 12/07/2022 documented in this encounter Results * SCAN - LABS (12/07/2022) us Provider Scanning Final Result documented in this encounter Visit Diagnoses Not on filedocumented in this encounter Care Teams Director Of Corporate Strategy Relationship Specialty Start Date End Date Bairon Cardona MD PCP - General Internal Medicine 05/11/22 Emily Cabrera, OD [address] [place] [address] Primary Eye Care Provider Optometry 07/04/22 Rey Fine MD [address] [place] [address] Neurologist Neurology 07/04/22 [place] [id number] [address] Consulting Physician Pulmonary Disease 07/04/22 documented as of this encounter
== END 2025-01-13 10:11 | disposition home or self-care (01) ==
PROVIDERS: PCP Internal Medicine; Visit Provider Internal Medicine
DX: M25.511 Pain in right shoulder (principal)
CPT/HCPCS: 73030

== ENCOUNTER 2025-03-19 07:07 | Outpatient (RCR) | payer MEDICARE, SELFPAY ==
[2025-03-04 09:45] VITALS: BMI 28.4
== END 2025-05-19 08:19 | disposition home or self-care (01) ==
LOC: ANHWOC 07:07
PROVIDERS: PCP Internal Medicine; Visit Provider Internal Medicine
DX: S81.001D Unspecified open wound, right knee, subsequent encounter (principal)
CPT/HCPCS: 99213; 99214; G0463

== ENCOUNTER 2025-04-18 10:26 | Outpatient (CLI) | payer MEDICARE, SELFPAY ==
--- NOTE | ~2025-04-18 | MM_ITS ---
EXAMINATION: MM screening maryam BI w mat HISTORY: Screening TECHNIQUE: Craniocaudal and mediolateral oblique 3-D tomosynthesis images were obtained and synthetic 2-D images were generated. CAD analysis was submitted and interpreted. COMPARISON: 04/16/2024 BREAST PARENCHYMAL COMPOSITION: Not Dense: The breasts are almost entirely fatty. FINDINGS: There is no evidence of suspicious mass, calcification, or architectural distortion to suggest malignancy. There has been no suspicious interval change. IMPRESSION: 1. No mammographic evidence of malignancy. Recommend routine screening mammography in one year. BI-RADS Category 2: Benign finding(s) Reviewed, dictated and finalized at location Q. IMPRESSION: 1. No mammographic evidence of malignancy. Recommend routine screening mammogra phy in one year. BI-RADS Category 2: Benign finding(s)
--- OUTSIDE RECORDS SUMMARY | 2025-04-18 10:30 | XMS_ITS | Clinical Summary ---
Author Organization [facility] Address [address] [place] [address] Care Team Providers Care Web Retailer Name Role Phone Bairon Cardona MD Primary Care Provider [phone] Emily Cabrera OD Unavailable Rey Fine MD Unavailable [phone] Jose Emerson MD Unavailable [phone] Allergies No known active allergies Medications albuterol HFA (PROVENTIL HFA,VENTOLIN HFA,PROAIR HFA) 90 mcg/actuation inhaler Inhale 2 puffs every 6 (six) hours as needed Active multivitamin capsule Take 1 capsule by mouth daily Active cetirizine (ZyrTEC) 10 mg tablet Take 1 tablet (10 mg total) by mouth daily 30 tablet 11 07/14/20 22 Active fluticasone propionate (FLONASE) 50 mcg/actuation nasal spray Administer 2 sprays into each nostril daily 1 each 07/14/20 22 Active zolpidem (AMBIEN) 10 mg tablet TAKE 1/2 TO 1 TABLET BY MOUTH DAILY AT BEDTIME 09/19/19 23 Active fluticasone-um eclidin-vilant er (Trelegy Ellipta) 200-62.5-25 mcg inhaler Inhale 1 puff daily Active apixaban (ELIQUIS) 5 mg tablet Take 1 tablet (5 mg total) by mouth 2 (two) times a day Active rosuvastatin (CRESTOR) 5 mg tablet Take 1 tablet (5 mg total) by mouth daily Active riTUXimab-pvvr (RUXIENCE) IVPB 1 mg/ml Infuse into a venous catheter every 6 (six) months Active ascorbic acid (VITAMIN C) 250 mg tablet Take 2 tablets (500 mg total) by mouth daily Active cholecalcifero l (VITAMIN D-3) 2000 unit tablet Take 25 mcg by mouth daily Active valACYclovir (VALTREX) 500 mg tablet Take 1 tablet (500 mg total) by mouth daily 11/10/19 25 Active gabapentin (NEURONTIN) 300 mg capsuleIndicat ions:Mononeuri tis multiplex associated with vasculitis TAKE 1 CAPSULE BY MOUTH TWICE DAILY (TAKE 300 MG IN THE MORNING AND 300 MG WITH THE 600 MG TABLET FOR A COMBINED 900 MG AT NIGHT) 60 capsule 04/17/20 25 Active gabapentin (NEURONTIN) 600 mg tabletIndicati ons:Neuropathi c pain TAKE 1 TABLET BY MOUTH NIGHTLY ALONG WITH 300MG CAPSULE FOR 900MG TOTAL NIGHTLY 30 tablet 04/17/20 25 Active gabapentin (NEURONTIN) 300 mg capsuleIndicat ions:Mononeuri tis multiplex associated with vasculitis Take 1 capsule (300 mg total) by mouth 2 (two) times a day Take 300 mg in the AM and 300 mg WITH the 600 mg tablet for a combined 900 mg at night. 60 capsule 11 03/04/20 24 025 Discontinued gabapentin (NEURONTIN) 600 mg tabletIndicati ons:Neuropathi c Pain Take 1 tablet (600 mg total) by mouth nightly Take with 300 mg capsule for 900 mg total nightly. 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 6th [place] [address] [place] [phone] Aaliyah Wilks RN from Last 3 Months Immunizations Immunization Administration [...] on file Legal Sex Female 8:34 AM SPECIALTY TRANSFORMER ASSEMBLER Gender Identity Not on file Sexual Orientation Not on file Obstetrics History Last Filed Vital Signs Vital Sign Reading Time Taken Comments Blood Pressure 150/79 01/20/2025 3:50 PM CDT Pulse 63 01/20/2025 3:50 PM CDT Temperature 36.6 C (97.9 F) 01/20/2025 3:50 PM CDT Respiratory Rate 16 01/20/2025 3:50 PM CDT Oxygen Saturation 99% 01/20/2025 3:50 PM CDT Inhaled Oxygen Concentration - - Weight 70.2 kg (154 lb 12.8 oz) 025 10:06 AM CDT Height 157.5 cm (5' 2) 11/18/2024 11:3 2 AM CDT Body Mass Index 28.31 11/18/2024 11:32 AM CDT Plan of Treatment Health Maintenance Due Date Last Done Comments Cervical Cancer Screening 1965 Colon Cancer Screening-Colonoscopy 1964 Depression Screening 1965 Regular Well Visit/Exam 18-64 1982 Zoster Vaccine (1 of 2) 11/30/1983 Pneumococcal vaccine <65 (2 of 2 - PPSV23, PCV20, or PCV21) 06/22/2016 04/27/2016 Breast Cancer Screening-Mammogram 03/23/2023 03/23/2022, 03/23/2022, 03/23/2022, Additional history exists Covid-19 Vaccine (4 - 2024-2 6 season) 2025 06/04/2021, 09/19/2020, 08/22/2020 Influenza Vaccine (#1) 2025 , 04/27/2022, 03/31/2022, Additional history exists DTaP/Tdap/Td Vaccine (3 - Td or Tdap) 11/04/2033 11/05/2023, 05/21/2014 Hepatitis B Screening Completed 05/12/2022 Hepatitis C Screening Completed 05/12/2022 Procedures Procedure Name Priority Date/Time Associated Diagnosis Comments IMMUNE COMPETENCE Routine 01/20/2025 10: 45 AM CDT Mononeuritis multiplex associated with vasculitis HEPATITIS C ANTIBODY Timed 05/12/2022 11:32 AM CDT from Last 3 Months or Most Recently Relevant to Health Maintenance Results * (ABNORMAL) Immune competence (01/20/2025 10:45 AM CDT) CD3 pct 82 60 - 88 % CD3 Absolute 1,270 661 - 1,963 cells/mcL [facility] CD4 pct 66(H) 31 - 64 % [facility] CD4 Absolute 998 365 - 1,294 cells/mcL [facility] CD8 pct 17 12 - 40 % [facility] CD8 Absolute 263 187 - 781 cells/mcL [facility] CD19 pct 1(L) 6 - 25 % [facility] CD19 Absolute <25(L) 86 - 488 cells/mcL [facility] Comment:Verified [id number] pct 17 5 - 25 % [facility] [id number] Absolute 259 76 - 467 cells/mcL [facility] CD4/CD8 ratio 3.[address] [facility] Blood 01/20/2025 10:4 5 AM CDT 01/20/2025 11:29 AM CDT us Mervin Tate MD PhD LAB BLOOD ORDERABL ES Final Result Performing Organization Address City/[facility]/ZIP Co de Phone Number [facility] Department [place] [address] * Hepatitis C antibody (05/12/2022 11:32 AM CDT) Hep C Ab Nonreactive Nonreactive [facility] Comment:Antibodies to HCV no t detected. Does NOT exclude the possibility of recent exposure to HCV. Blood 05/12/2022 11:3 2 AM CDT 05/12/2022 11:52 AM CDT us Joselito Mix MD LAB MICROBIOLOGY - GENE RAL ORDERABLES Edited Result - Final Performing Organization Address City/[facility] Co de Phone Number [facility] Department [place] [address] from Last 3 Months or Most Recently Relevant to Health Maintenance Insurance [facility] MEDICARE AETNA SENIOR SUPPLEMENT [facility] CHOICE PLUS [facility] HMO/PPO Address: [address] [address] [place] [address] MEDICARE AETNA SENIOR SUPPLEMENT [address] CHOICE PLUS [facility] HMO/PPO Address: [address] [address] [place] [address] Advance Directives For more information, please contact: [phone] * Full Code (Latest Code Status on File) Date Activated Date Inactivated Comments 07/06/2022 3:58 PM 07/15/2022 12:39 AM * Full Code Date Activated Date Inactivated Comments 05/08/2022 12:10 AM 05/12/2022 6:12 PM Care Teams Web Retailer Relationship Specialty Start Date End Date Bairon Cardona MD PCP - General Internal Medicine 05/11/22 Emily Cabrera OD [address] [place] [address] Primary Eye Care Provider Optometry 07/04/22 Rey Fine MD [address] [place] [address] Neurologist Neurology 07/04/22 [place] [address] [address] Consulting Physician Pulmonary Disease 07/04/22
--- OUTSIDE RECORDS SUMMARY | 2025-04-18 10:30 | XMS_ITS | Clinical Summary ---
Author Organization [facility] Smart Address [address] [place] [address] Care Team Providers Care Pet Trainer Name Role Phone Bairon Cardona MD Primary Care Provider Allergies No known active allergies Medications albuterol sulfate HFA 90 mcg/actuation aerosol inhaler Take 2 Puffs by inhalation every 6 hours as needed. 01/12/20 23 Active fluticasone-um eclidinium-igor anterol (Trelegy Ellipta) 200-62.5-25 mcg Disk with Device Take 1 Puff by inhalation daily. Active gabapentin (NEURONTIN) 300 mg capsule Take 300 mg by mouth 3 times daily. Active ascorbic acid (VITAMIN C) 500 mg Tablet, Chewable Take 500 mg by mouth. Active cholecalcifero l 1,250 mcg (50,000 unit) Capsule Take by mouth. Activ e rosuvastatin (CRESTOR) 5 mg tablet Take 5 mg by mouth daily. Active zolpidem (AMBIEN) 10 mg tablet Take 10 mg by mouth nightly as needed for Insomnia. Active valACYclovir (VALTREX) 1 gram tablet Take 500 mg by mouth daily. 01/29/20 24 Active Eliquis 5 mg tablet Take 1 tablet by mouth twice daily 60 Tablet 04/09/20 25 Active Eliquis 5 mg tablet Take 1 tablet by mouth twice daily 60 Tablet 03/14/20 25 025 Discontinued Active Problems Problem Noted Date Diagnosed Date Acute deep vein thrombosis (DVT) of right lower extremity 05/08/2023 Pain and swelling of left lower leg 05/08/2023 Encounters Date Type Department Care Team Description 04/09/2025 Refill [facility] Oncology and Hematology - [place] [address] [place] [address] Sukhjinder Joshi MD 03/14/2025 Refill [facility]ology - [place] [address] [place] [address] Sukhjinder Joshi MD 03/04/2025 External Device Data STL ABSTRACTION Provider, Abstract 01/21/2025 External Device Data ST[facility] ABSTRACTION Provider, Abstract [...] Sex Assigned at Female 07/08/2024 4:18 PM CAR CHECKER Legal Sex Female 9:26 AM CDT Gender Identity Female 07/08/2024 4:18 PM CAR CHECKER Sexual Orientation Not on file Last Filed Vital Signs Vital Sign Reading Time Taken Comments Blood Pressure 119/77 07/16/2024 3:07 PM CAR CHECKER Pulse 112 07/16/2024 3:07 PM CAR CHECKER Temperature 36.9 C (98.5 F) 07/16/2024 3:07 PM CAR CHECKER Respiratory Rate 16 07/16/2024 3:07 PM CAR CHECKER Oxygen Saturation 92% 07/16/2024 3:07 PM CAR CHECKER Inhaled Oxygen Concentration - - Weight 72.6 kg (160 lb) 07/16/2024 3:07 PM CAR CHECKER Height - - Body Mass Index - - Plan of Treatment Upcoming Encounters Date Type Department Care Team (Late st Contact Info) Description 07/18/2025 8:45 AM CAR CHECKER Office Visit [facility] Oncology and Hematology - [place] [address] [place] [address] Sukhjinder Joshi MD [address] [facility] [address] [place] [address] Health Maintenance Due Date Last Done Comments Pre-Diabetes and Diabetes Screening 1965 HPV/Cotest (21-29) 1985 CERVICAL CANCER SCREENING 1994 HPV/Cotest (30-65) 1994 PAP SMEAR 1994 COLORECTAL SCREENING 2009 Colorectal Cancer Screening 2009 FIT-DNA Q 3 years 2009 FIT/FOBT Q 1 year 2009 Flex Sig/CT Colonography Q 5 years 2009 ZOSTER VACCINE (1 of 2) 2014 BREAST CANCER SCREENING 03/23/2023 03/23/20 22, 03/23/2022, 03/16/2021 INFLUENZA VACCINE (#1) 2025 DTAP/TDAP/TD VACCINES (3 - T d or Tdap) 11/04/2033 11/05/2023, 05/21/2014 RSV VACCINE (60+ or ) (1 - 1-dose 75+ series) 11/30/2039 HEPATITIS B VACCINES Aged Out No long er eligible based on patient's age to complete this topic Insurance [facility] MEDICAID Care Teams Pet Trainer Relationship Specialty Start Date End Date Bairon Cardona MD [address] [place] [address] PCP - General Internal Medicine 02/09/23
--- OUTSIDE RECORDS SUMMARY | 2025-04-18 10:30 | XMS_ITS | Encounter Summary ---
Author Organization [facility] Address [address] [place] [address] Phone Care Team Providers Care Oracle Specialist Name Role Phone Bairon Cardona MD Primary Care Provider [phone] Emily Cabrera OD Unavailable Rey Fine MD Unavailable [phone] Jose Emerson MD Unavailable [phone] Encounter Details Date Type Department Care Team (Late st Contact Info) Description 12/07/2022 Orders Only [facility] Scanning, Provider Social History Tobacco Use Types Packs/Day Years Used Date Smoking Tobacco: Never Passive Smoke Exposure: Never Smokeless Tobacco: Never Comments No Sex and Gender Information Value Date Recorded Sex Assigned at Not on file Legal Sex Female 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
--- OUTSIDE RECORDS SUMMARY | 2025-04-18 10:30 | XMS_ITS | Clinical Summary ---
Author Organization [facility] Address [address] [place] [address] Care Team Providers Care Coating Mixer Tender Name Role Phone Bairon Rasmussen MD Primary Care Provider [phone] Allergies No known active allergies Medications albuterol sulfate HFA 108 (90 Base) MCG/ACT inhaler Inhale 2 puffs into the lungs every 6 (six) hours as needed for Wheezing. Active fluticasone furoate 27.5 MCG/SPRAY Suspension 2 sprays by Each Nostril route. Active cetirizine 10 MG chewable tablet Chew 1 tablet (10 mg total) by mouth daily. Active Fluticasone-Ume clidin-Vilant (TRELEGY ELLIPTA) 200-62.5-25 MCG/ACT AEROSOL POWDER, BREATH ACTIVATED Active multi vitamin/mineral s (THERA-M ENHANCED) tablet Take 1 tablet by mouth daily. Active gabapentin (NEURONTIN) 600 MG tablet Take 1 tablet (600 mg total) by mouth 2 (two) times daily. 300 mg in morning, 900 mg in night Active vitamin C (ASCORBIC ACID) 250 MG tablet Take 2 tablets (500 mg total) by mouth daily. Active Vitamin D3 (VITAMIN D) 50 mcg tablet Take 0.5 tablets (25 mcg total) by mouth daily. Active rosuvastatin (CRESTOR) 5 MG tablet Take 1 tablet (5 mg total) by mouth nightly at bedtime. Active zolpidem (AMBIEN) 10 MG tablet Take 1 tablet (10 mg total) by mouth nightly as needed for Sleep. Active apixaban (ELIQUIS) 5 MG tablet Take 1 tablet (5 mg total) by mouth 2 (two) times daily. Active valACYclovir (VALTREX) 500 MG tablet Take 1 tablet (500 mg total) by mouth 2 (two) times daily. Active riTUXimab-pvvr (RUXIENCE IV) Inject into the vein every 6 (six) months. 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 Immunizations Immunization Administration Dates Next Due Tdap (Boostrix) 11/05/2023 Tdap (Historical Only-select from magnify glass) 05/21/2014 Family History Medical History Relation Comments Diabetes Brother Breast Cancer Maternal Grandmother Asthma Mother Heart Disease Mother Relation Status Comments Brother Maternal Grandmother Mother Social History Tobacco Use Types Packs/Day Years Used Date Smoking Tobacco: Never Smokeless Tobacco: Never Alcohol Use Standard Drinks/Week Comments Not Currently 0 (1 standard drink = 0.6 oz pur e alcohol) Comments No Sex and Gender Information Value Date Recorded Sex Assigned at Not on file Legal Sex Female 6:55 PM CDT Gender Identity Not on file Sexual Orientation Not on file Last Filed Vital Signs Vital Sign Reading Time Taken Comments Blood Pressure 121/62 06/05/2024 9:13 AM SENIOR CYBER SECURITY ANALYST Pulse 71 06/05/2024 9:13 AM SENIOR CYBER SECURITY ANALYST Temperature 35.8 C (96.5 F) 06/05/2024 9:13 AM SENIOR CYBER SECURITY ANALYST Respiratory Rate 16 06/05/2024 9:13 AM SENIOR CYBER SECURITY ANALYST Oxygen Saturation 99% 06/05/2024 9:13 AM SENIOR CYBER SECURITY ANALYST Inhaled Oxygen Concentration - - Weight 72.1 kg (159 lb) 04/23/2024 1:28 PM CDT Height 157.5 cm (5' 2) 04/23/2024 1:28 PM CDT Body Mass Index 29.08 04/23/2024 1:28 PM CDT Plan of Treatment Health Maintenance Due Date Last Done Comments Cervical Cancer Screening Pa p Smear (Age 30 to 64) Every 3 Years 1964 Colorectal Cancer Screening Colonoscopy (10 Years) 1964 Annual Physical 11/30/1967 Cervical Cancer Screening Pa p with HPV Testing (Age 30 to 64) Every 5 Years 1994 Cervical Cancer Screening wi th HPV 1994 Zoster Vaccines (1 of 2) 2014 Pneumococcal Vaccine: 50+ Years (2 of 2 - PPSV23) 04/27/2017 04/27/2016 Mammogram Screening 03/23/2024 03/23/2022, 03/16/2021 COVID-19 Vaccine (3 - 2024-2 6 season) 2025 09/19/2020, 08/22/2020 DTaP, Tdap and Td Vaccines ( 3 - Td or Tdap) 11/04/2033 11/05/2023, 05/21/2014 RSV Immunization or 60+ Years (1 - 1-dose 75+ series) 11/30/2039 Hepatitis C Completed 05/12/2022, 05/12/2022, 05/12/2022 Meningococcal B Vaccine Aged Out No l onger eligible based on patient's age to complete this topic Meningococcal Vaccine Aged Out No miriam fatou eligible based on patient's age to complete this topic RSV Immunizations Under 20 Months Aged Out No longer eligible b ased on patient's age to complete this topic Medical Devices Implanted Type Area Dental Professional Device Identifier Shelf Expiration Date Model / Serial / Lot Iol Seth [id number] - [id number] Implanted:Qty: 1 on 04/10/2024 by Felicita Friedman MD at [facility] Lens Left: Eye [employer] [id number] 04/26/2026 [id number] / [id number] / [id number] Iol Seth [id number] - [id number] Implanted:Qty: 1 on 06/05/2024 by Felicita Friedman MD at [facility] Lens Right: Eye [employer] [id number] 09/12/2026 [id number] / [id number] / [id number] Procedures Procedure Name Priority Date/Time Associated Diagnosis Comments MG SCREENING W LORNA ALON DIGI Routine 03/23/2022 3:57 PM CDT Visit for screening mammogram from Last 3 Months or Most Recently Relevant to Health Maintenance Results * MG SCREENING W LORNA ALON DIGI (03/23/2022 3:57 PM CDT) Anatomical Region Laterality Modality Breast Bilateral Mammography 03/23/2022 5:38 PM CDT Impressions 03/23/2022 5:38 PM CDT IMPRESSION: No suspicious change since the previous exams. Recommendation: 1: Routine Screening Bilateral in 1 Year Assessment: ACR BI-RADS 2 - BENIGN FINDING(S) Ordered By: BAIRON RASMUSSEN Interpreted By: Royer Clemons MD, 03/23/2022 5:38 PM Narrative 03/23/2022 5:38 PM CDT Examination: Digital screening mammogram with CAD. Clinical history: Asymptomatic patient presents for routine screening. Comparison: 03/16/2021, 03/09/2020. Technique: Bilateral digital mammograms. The exam was interpreted with the use of a computer-aided detection (CAD) system. Additional 3-D tomosynthesis images were acquired. Tissue density: The breast tissue contains scattered fibroglandular densities. Findings: The breast tissue contains scattered fibroglandular densities. Benign-appearing calcification noted. No suspicious mass, microcalcification or area of architectural distortion can be identified. From a mammographic standpoint, routine followup in one year would seem adequate. Bairon Rasmussen MD MAMMO Final Result from Last 3 Months or Most Recently Relevant to Health Maintenance [place] [place] [address] Care Teams Coating Mixer Tender Relationship Specialty Start Date End Date Bairon Rasmussen MD [address] [place] [address] PCP - General INTERNAL MEDICINE 09/27/19
--- OUTSIDE RECORDS SUMMARY | 2025-04-18 10:30 | XMS_ITS | Encounter Summary ---
Author Organization [facility] Address [facility]ly [facility] [place] [address] Care Team Providers Care Digital Coordinator Name Role Phone Bairon Cardona MD Primary Care Provider [phone] Encounter Details Date Type Department Care Team ([facility] st Contact Info) Description 01/05/2019 Abstract SFL CONVERSION [address] [place] [address] , Generic Conversion, Social History Tobacco Use [...] documented as of this encounter Care Teams Digital Coordinator Relationship Specialty Start Date End Date Bairon Cardona MD [address] [place] [id number] PCP - General INTERNAL MEDICINE 09/27/19 documented as of this encounter
== END 2025-04-18 10:27 | disposition home or self-care (01) ==
PROVIDERS: PCP Internal Medicine; Visit Provider Internal Medicine
DX: Z12.31 Encounter for screening mammogram for malignant neoplasm of breast (principal)
CPT/HCPCS: 77063; 77067

== ENCOUNTER 2025-06-16 12:08 | Outpatient (CLI) | payer MEDICARE, SELFPAY ==
--- NOTE | ~2025-06-16 | DEXA_ITS ---
Bone Density Report Name: DANIELA BOTELLO Age: 59 Sex: Female Ethnicity: White Date of : 1965 Indication: postmenopausal; screening for osteoporosis; height loss; asthma or emphysema; Referring Provider: Bairon Cardona Study: Bone densitometry was performed. Exam Date: June 16, 2025 Accession number: [id number] Bone Density: Region BMD T-score Z-score Classification AP Spine(L2, L3, L4) 1.009 -0.6 0.9 Normal Femoral Neck (Left) 0.673 -1.6 -0.3 Osteopenia Total Hip (Left) 0.935 -0.1 0.9 Normal Femoral Neck (Right) 0.685 -1.5 -0.2 Osteopenia Total Hip (Right) 0.919 -0.2 0.8 Normal Femoral Neck Mean 0.679 -1.5 -0.2 Osteopenia Total Hip Mean 0.927 -0.1 0.8 Normal World Health Organization criteria for BMD impression classify patients as: Normal (T-score at or above -1.0), Osteopenia (T-score between -1.0 and -2.5), or Osteoporosis (T-score at or below -2.5). 10-year Fracture Risk(1): Major Osteoporotic Fracture 8.1% Hip Fracture 0.7% Reported Risk Factors: [place] (), Neck BMD=0.673, BMI=27.8 (1) FRAX(R) Version 3.08. Fracture probability calculated for an untreated patient. Fracture probability may be lower if the patient has received treatment. Clinical Information Provided by Patient: Has used the following medications: Vitamin D, Calcium, multivitamin Has the following medical conditions: Asthma or Emphysema Patient maximum height was 63 Menopause Age: 41 No regular weight bearing exercise Does not regularly consume dairy products Drinks caffeinated beverages Onset of menses at age 10 Number of children 0 Impression: The patient has low bone mass, based on the Left Femoral Neck T-score. Discussion: BONE DENSITY IS LOW AT ONE OR MORE SKELETAL SITES. This patient's lowest T-score is low at one or more skeletal sites. It meets the World Health Organization's (WHO) criteria for ?low bone mass? (T-score between -1.0 and -2.5). The patient's 10-year risk of fracture as calculated by FRAX is less than the threshold where pharmacological therapy is recommended by the National Osteoporosis Foundation (NOF). However, all treatment decisions require clinical judgment and consideration of individual patient factors, including patient preferences, comorbidities, previous drug use, risk factors not captured in the FRAX model (e.g., frailty, falls, vitamin D deficiency, increased bone turnover, interval significant decline in bone density) and possible under or overestimation of fracture risk by FRAX. The patient should follow a healthful lifestyle (good nutrition with adequate calcium and vitamin D, and appropriate weight-bearing exercise). Follow-Up: Consider repeating this study in 2 to 3 years to reassess this patient's status, or sooner if there is some new clinical indication. Reported by: ROSMERY on 06/17/2025 8:18:00 AM. Reviewed, dictated and finalized at location A.
== END 2025-06-16 12:09 | disposition home or self-care (01) ==
LOC: CHSIMG 12:11
PROVIDERS: PCP Internal Medicine; Visit Provider Internal Medicine
DX: Z78.0 Asymptomatic menopausal state (principal); M85.89 Other specified disorders of bone density and structure, multiple sites
CPT/HCPCS: 77080